=== PATIENT | female | born 1935 | race Caucasian/White ===

== ENCOUNTER 2018-05-23 17:44 | Outpatient (CLI) | payer MEDICARE | END 2018-05-23 17:45 | disposition short-term general hospital (02) | LOC: EMS 17:44 | PROVIDERS: ATTEND Surgery | DX: S01.21XA Laceration without foreign body of nose, initial encounter (principal); M79.605 Pain in left leg; W01.10XA Fall on same level from slipping, tripping and stumbling with subsequent striking against unspecified object, initial encounter; Y93.01 Activity, walking, marching and hiking; Y92.198 Other place in other specified residential institution as the place of occurrence of the external cause | CPT/HCPCS: A0425; A0429 ==

== ENCOUNTER 2019-03-29 09:59 | Outpatient (CLI) | payer MEDICARE, OTHER | END 2019-03-29 10:00 | disposition short-term general hospital (02) | LOC: EMS 09:59 | PROVIDERS: ATTEND Surgery | DX: M25.551 Pain in right hip (principal); R07.81 Pleurodynia | CPT/HCPCS: A0425; A0427; A0888 ==

== ENCOUNTER 2019-05-05 10:50 | Outpatient (CLI) | payer MEDICARE, OTHER ==
--- NOTE | 2019-05-05 15:18 | CONSULTATION NOTE ---
Palliative Care Consultation - Referral Referring Provider: Dr. Jasmyn Stallworth Time of Visit: [id number] Referral setting: Assisted living ([facility]) Referral Reason: Dementia/Advanced Care Planning - Information Sources Records reviewed: RN notes reviewed, Previous records reviewed History/Review of Systems obtained from: Patient, Family (son/DPOA/Guardian, Guillermo and brother, Dick present) Exam limitations: Clinical condition (Advanced Dementia) - History of Present Illness Brief History of Present Illness: Is an 83-year-old woman who resides in [facility] at [facility] who was seen in evaluation for initial palliative care consultation today due to advanced dementia, advanced care planning, and due to a history of frequent UTIs. Her son/D POA/guardian, Guillermo and her brother, Dick are present with the patient. The patient has had a slow cognitive decline over the last few years. Her son reports that she was diagnosed with dementia approximately 7 years ago and she relocated to an assisted living facility in [place]. She then subsequently relocated to an assisted living in [place], then [facility] in [place] and eventually to [facility] before transferring to the memory care unit and has been in memory care for approximately 4 years. The patient has a history of diabetes and is presently on metformin. She does not allow anyone to draw a vena puncture due to her advancement of her dementia. Her last fingerstick obtained in the office with her PCP was 121 on July 01, 2017. There is no evidence of episodes of hypoglycemia. Son is regarding the son is concerned regarding her frequency of urinary tract infections. Typically when she develops a urinary tract infection her mood alters and that she is quite emotional and agitated. The urinary tract infections have increased due to the patient's level of incontinence from both bowel and bladder. She also has a history of falls. She continues to be able to ambulate but will not use her walker. 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 Her son and brother both deny a history of fractures. Now the patient is intermittently in a wheelchair. She denies any reports of pain or discomfort. Medical/Surgical History - Past Medical History Cardiovascular: reports: Hypertension, High cholesterol, Coronary artery disease (h/o angioplasty 1990) Respiratory: reports: None Neuro: Dementia Neuro: reports: Dementia Endocrine/Autoimmune: reports: Type 2 diabetes GI: reports: None BAGMAN/WOMAN: reports: None : reports: Incontinence HEENT: reports: None Psych: reports: Depression Musculoskeletal: reports: Osteoarthritis Derm: reports: None MRSA Hx?: No - Past Surgical History General: reports: Cholecystectomy (1989), Appendectomy (1958), Other (Hernia surgery) Ortho: reports: Other (Back surgery 1998) /BAGMAN/WOMAN: reports: Other (Breast Biopsy 1995; Total hysterectomy with BSO) Cardiovascular: reports: Angioplasty (1990) - Substance History Use: Uses substance without health or social issues: NONE (Never a smoker) Social History - Living Situation Living arrangement: Assisted living Support System: The patient presently resides at [facility] memory unit at [facility]. She has resided at [facility] for approximately the last 4 years. She has been in assisted living for approximately the last 7 years after her diagnosis of dementia. The patient had been residing in [place]. She was for approximately 56 years to her . Her subsequently on hospice services due to heart disease. She has 2 sons. Her son, Guillermo Hamm is her guardian and D ROBIN ([phone]). Guillermo visits routinely during the week. He is presently working on building a home in [place]. The patient's brother, Dick visits almost daily. The patient had 1 other sibling, a sister who is . The patient's son, Guillermo reports that the patient was a "great mom." She was always a caregiver. Presently in the memory care unit she has assisted others as a something she is done throughout her life. Family History - Family History Family History: Mother: , Father: , Sister: Family History Comment/Other: Older sister from leukemia. Father at age 77 due to heart disease and multiple MIs. Paternal uncle at 94 due to heart disease. Medications/Allergies - Medications Home Medications: Ambulatory Orders Medication Instructions Recorded Confirmed Acetaminophen 500 mg PO Q4H PRN MDD NTE 2gram 05/05/19 05/05/19 daily Aspirin [Aspirin EC] 81 mg PO DAILY 05/05/19 05/05/19 Bisacodyl Supp [Dulcolax Supp] 1 ea [place] DAILY PRN MDD if NO BM 05/05/19 05/05/19 after MOM in 24hr Bismuth Subsalicylate [[place] 15 ml PO Q1H PRN MDD NTE 3 05/05/19 05/05/19 Bismuth] doses/24hour Cranberry Fruit Extract/Vit C [Cvs 1 cap PO DAILY 05/05/19 05/05/19 Cranberry-Vitamin C Sfgl] LORazepam [Ativan] 0.5 mg PO Q6H PRN 05/05/19 05/05/19 LORazepam [Ativan] 0.5 mg PO TID 05/05/19 05/05/19 Lisinopril [Prinivil] 10 mg PO BID 05/05/19 05/05/19 Loperamide HCl [Loperamide] 05/05/19 Loratadine [Allergy] 10 mg PO DAILY 05/05/19 05/05/19 Magnesium Hydroxide [Milk of 30 ml PO DAILY PRN 05/05/19 05/05/19 Magnesia] Meloxicam 7.5 mg PO DAILY 05/05/19 05/05/19 Metformin HCl 500 mg PO BID 05/05/19 05/05/19 Multivitamin [Multiple Vitamins] 1 tab PO DAILY 05/05/19 05/05/19 Nystatin 1 applic TP Q8H PRN MDD as needed 05/05/19 05/05/19 reddness QUEtiapine [SEROquel] 25 mg PO QPM 05/05/19 05/05/19 Sertraline HCl [Zoloft] 150 mg PO DAILY 05/05/19 05/05/19 - Allergies Allergies/Adverse Reactions: Allergies Allergy/AdvReac Type Severity Reaction Status Date / Time codeine Allergy Unknown Verified 05/05/19 15:48 Penicillins Allergy Unknown Verified 05/05/19 15:48 zolpidem [From Ambien] Allergy Unknown Verified 05/05/19 15:48 Review of Systems - Constitutional Constitutional: reports: Weight stable (weight 151.4lb on 03/30/2019; weight 155.6lb ob 03/30/2018). denies: Fatigue, Fever, Chills - Eyes Eyes: denies: Blurred vision - Ears, Nose & Throat Ears, Nose & Throat: denies: Nasal discharge - Cardiovascular Cardiovascular: denies: Palpitations, Chest pain, Edema - Respiratory Respiratory: reports: Cough. denies: Wheezing - Gastrointestinal Gastrointestinal: reports: Good appetite. denies: Abdominal pain, Abdominal distention, Constipation, Diarrhea, Vomiting - Genitourinary Genitourinary: reports: Incontinence. denies: Dysuria - Musculoskeletal Musculoskeletal: reports: Muscle weakness, Assistive devices (walker or wheelchair). denies: Joint pain, Joint swelling - Integumentary Integumentary: denies: Rash - Neurological Neurological: reports: Memory problems - Psychiatric Psychiatric: reports: Depression - Endocrine Endocrine: reports: Diabetes type 2 - Hematologic/Lymphatic Hematologic/Lymphatic: reports: Recurrent infections (frequent UTIs) - All Other Systems All Other Systems: reports: Other (ROS obtained from son/DPHUGO, Guillermo, brother Dick and facility staff as patient is a poor historian due to dementia.) Physical Exam - Vital Signs Temperature: 36.5 C Pulse Rate: 62 O2 Saturation: 98 (on RA at rest) Blood Pressure: 105/54 (right wrist cuff) - Physical Exam General Appearance: positive: No acute distress, Alert, Other (well groomed, OOB in wheelchair) Eyes Bilateral: positive: Normal inspection ENT: positive: No signs of dehydration Neck: positive: No JVD, Trachea midline Cardiovascular: positive: Regular rate & rhythm, No murmur Respiratory: positive: No respiratory distress, Breath sounds nml, Other (no noted cough on examination). negative: Rhonchi Abdomen: positive: Non-tender, Soft, Nml bowel sounds. negative: Guarding, Distended Skin: negative: Dryness Extremities: positive: Non-tender, No pedal edema, Other (Moves all extremities) Neurologic/Psychiatric: positive: Disoriented to person, Disoriented to place, Disoriented to time, Other (word salad; pleasantly confused; no s/s of agitation or anxiety) Comments/Other: weight 151.4lb Palliative Care - POLST Patient has POLST: Yes POLST Status: DNR, Comfort Measures Pain: No pain Anorexia: None Dyspnea: None Sleep: Sleeps well Constipation: No Performance Status: Patient remains ambulatory with frequent falls due to her dementia has she is unable to accurately use a walker. Periodically she is in a wheelchair. She requires total assistance with hygiene and care. She is incontinent of bowel and bladder. With consuming meals she worked requires either cueing or a 1 person assistance depending on the day. FAST 7B - Palliative Care Discussion: The patient has had a slow and steady cognitive decline over the last several years due to her dementia. Both her son/D POA/guardian, Guillermo and her brother Dick recognize the progression of the dementia diagnosis has a chronic illness. Her son is very concerned regarding her frequency of urinary tract infections and the emotional and physical distress that this causes her. He wishes to promptly treat the urinary tract infections as they occur for comfort. Staff continue to encourage oral hydration to reduce the risk of urinary tract infection. Her son also requested implementation of cranberry supplementation that began in the fall 2018 to reduce the frequency of her urinary tract infe ctions. It is difficult for the patient to leave the facility due to her advancement of dementia and her son is looking for assistance in the patient's care with a goal of comfort. If the patient has to be sent out for ER level of care for evaluation the son wishes the patient to be transported to [facility] as his preference. The patient's was on hospice services and per both her son and her brother this was a positive experience. They wish for the patient to transition to hospice services when appropriate. POLST reviewed today and updated. Patient to remain a DNA R with comfort measures with antibiotic therapy for symptom management with no artificial nutrition by tube. Impression and Recommendations - Palliative Care Impression: This is a william 83-year-old woman with advanced dementia F AST 7B with a history of frequent falls and urinary tract infections who has had a slow, steady cognitive decline. She is presently on cranberry supplementation for UTI prophylaxis. Palliative care to provide support for symptom management, anticipatory guidance, and transition to hospice services when medically appropriate. Recommendations/Counseling Done: 1. Dementia with behavioral disturbances. Chronic. Progressive. Supportive Care. Fall a precautions. No behavioral concerns reported by staff. Continue quetiapine 25mg nightly as ordered and consider dose reduction in the future if no evidence of agitation. Continue zoloft 150mg daily as ordered. Given the patient's advanced age, dementia and chronic co-morbities, a gradual decline is expected. 2. Frequent UTIs. Continue cranberry supplementation with Vitamin C as ordered. Discussed use of D'Mannose with son/DPOA/guardian, Guillermo for additional prophylaxis and explained mechanism of action. At this time, son/DPOA wishes to investigate the supplement D'Mannose further prior to implementation. Continue to encourage oral hydration. 3. Frequent falls. Falls unavoidable due to dementia. Fall precautions. Encourage to ambulate with walker. 4. HLD with CAD. Continue ASA 81mg daily for cardiac prophylaxis. Discussed with son/DPOA, given the patient's advanced age and co-morbidities would recommend discontinuation of statin therapy given the patient's expected length of life expectancy, time to see continued benefit of statin therapy and medication side effects. Discontinue atorvastatin 20mg daily. 5. Diabetes Mellitus Type II. No recent HgA1C. Presently on metformin 500mg BID and given patient is in a controlled setting with her diet and overall weight loss from 2017 to 2019 (171.8lb to 151.4lb) unlikely to need continued metformin dosage discussed with son and in agreement with tapering off the medication. Unable to obtain a HgA1C given patient's distress with venipuncture. Obtain fasting blood glucose level on 05/06, 05/10, 05/12 and notify MASTER FIRE CONTROL TECHNICIAN of result. If below 200mg/dL for blood glucose level will d/c AM dose of metformin and continue to monitor with goal of complete discontinuation. Continue to monitor. 6. HTN. No cardiac awareness. Continue lisinopril 10mg BID. Continue ASA 81mg daily for cardiac prophylaxis. Continue to monitor BP trends and adjust antihypertensive medications as needed. 7. Advanced Care Planning. Goals of care reviewed with patient's son/Guillermo WALLACE and her brother Dick. The goals of the patient's family are to focus on comfort and prompt treatment of urinary tract infections with a reduction in frequency if at all possible. POLST reviewed and updated today and patient remains DNR with a comfort focused approach to care. Her family wishes to transition to hospice services when medically appropriate. Time Spent: Total time spent 60 minutes with greater than 50% of this spent in counseling and coordination of care with son/DPHUGO Li, brother Dick, patient and facility staff; review of medications and examination of the patient; review of palliative care philosophy; review symptom management and anticipatory guidance. Disclaimer: The chart note was formulated using voice recognition technology and unfortunately sound alike errors may occur.
== END 2019-05-05 10:51 | disposition home or self-care (01) ==
LOC: PC 10:50
PROVIDERS: ATTEND Nurse Practitioner Family
DX: Z51.5 Encounter for palliative care (principal); F03.91 Unspecified dementia, unspecified severity, with behavioral disturbance; E11.9 Type 2 diabetes mellitus without complications; R32 Unspecified urinary incontinence; R15.9 Full incontinence of feces; M62.81 Muscle weakness (generalized); I10 Essential (primary) hypertension; I25.10 Atherosclerotic heart disease of native coronary artery without angina pectoris; Z79.899 Other long term (current) drug therapy; Z79.82 Long term (current) use of aspirin; Z79.84 Long term (current) use of oral hypoglycemic drugs; Z87.440 Personal history of urinary (tract) infections; Z66 Do not resuscitate; Z91.81 History of falling

== ENCOUNTER 2019-06-04 17:46 | Outpatient (CLI) | payer MEDICARE, OTHER ==
--- NOTE | 2019-06-04 17:52 | CONSULTATION NOTE ---
Palliative Care Follow Up - Referral Referring Provider: Dr. Jasmyn Stallworth Time of Visit: [id number] Referral setting: Assisted living ([facility]) - Information Sources Records reviewed: Previous records reviewed History/Review of Systems obtained from: Caregiver, Nursing Exam limitations: Clinical condition (Advanced dementia) - History of Present Illness Update Brief HPI Update: This is an 84-year-old woman who resides at [facility] who is seen in follow-up today for her history of advanced dementia, diabetes mellitus type II, and a history of frequent UTIs. The patient has a history of diabetes and is presently on metformin. She will not allow anyone to perform a vena puncture due to her advanced dementia. Staff deny any episodes of hypoglycemia. Fasting blood glucoses were obtained in April 2019 as follows 98, 122, 117,. Fingerstick obtained in her PCP office in June 2017 was 121. On last evaluation had discussed with son/Major KELLY regarding tapering off metformin based on her blood glucose levels. The patient has had a reduction in her fall frequency. She continues to ambulate and will not use her walker. No history of fractures. The patient herself denies any joint pain or discomfort. Since last evaluation the patient did spill hot cocoa resulting in some erythema to her upper thigh that has subsequently resolved. She does enjoy her hot cocoa and needs to have the ice in it. The patient has a history of frequent urinary tract infections. Typically when these occur she has alterations in her mood which she can become emotional and agitated. She is presently on cranberry and vitamin C supplementation for UTI prevention. Patient denies dysuria. Patient has a past medical history of hypertension, hyperlipidemia, coronary artery disease with history of angioplasty, dementia, type 2 diabetes, urinary incontinence, osteoarthritis, depression. Social History - Living Situation Living arrangement: Assisted living Support System: Patient presently resides at [facility] at [facility]. She has resided at [facility] for approximately the last 4 years. She has been in assisted living for approximately the last 7 years after her diagnosis of dementia. The patient had previously been residing in [place].She was to her for 56 years. Her on hospice services due to heart disease. She has 2 sons. Her son, Guillermo is her guardian and D ROBIN ([phone]. Her son/D POA Guillermo visits routinely during the week and the patient's brother, Dick visits almost daily. However, due to the present coronavirus and pandemic and the facility not allowing visitors both Dick and Guillermo have not been able to visit for the last month. Medications/Allergies - Medications Home Medications: Ambulatory Orders Medication Instructions Recorded Confirmed Acetaminophen 500 mg PO Q4H PRN MDD NTE 2gram 05/05/19 06/04/19 daily Aspirin [Aspirin EC] 81 mg PO DAILY 05/05/19 06/04/19 Bisacodyl Supp [Dulcolax Supp] 1 ea SC DAILY PRN MDD if NO BM 05/05/19 06/04/19 after MOM in 24hr Bismuth Subsalicylate [[place] 15 ml PO Q1H PRN MDD NTE 3 05/05/19 06/04/19 Bismuth] doses/24hour Cranberry Fruit Extract/Vit C [Cvs 1 cap PO DAILY 05/05/19 06/04/19 Cranberry-Vitamin C Sfgl] LORazepam [Ativan] 0.5 mg PO Q6H PRN 05/05/19 06/04/19 LORazepam [Ativan] 0.5 mg PO TID 05/05/19 06/04/19 Lisinopril [Prinivil] 10 mg PO BID 05/05/19 06/04/19 Loperamide HCl [Loperamide] 05/05/19 Loratadine [Allergy] 10 mg PO DAILY 05/05/19 05/05/19 Magnesium Hydroxide [Milk of 30 ml PO DAILY PRN 05/05/19 05/05/19 Magnesia] Meloxicam 7.5 mg PO DAILY 05/05/19 05/05/19 Metformin HCl 500 mg PO DAILY 05/05/19 06/04/19 Multivitamin [Multiple Vitamins] 1 tab PO DAILY 05/05/19 06/04/19 Nystatin 1 applic TP Q8H PRN MDD as needed 05/05/19 06/04/19 reddness QUEtiapine [SEROquel] 25 mg PO QPM 05/05/19 06/04/19 Sertraline HCl [Zoloft] 150 mg PO DAILY 05/05/19 06/04/19 D'Mannose 1 g PO BID 06/04/19 06/04/19 - Allergies Allergies/Adverse Reactions: Allergies Allergy/AdvReac Type Severity Reaction Status Date / Time codeine Allergy Unknown Verified 05/05/19 15:48 Penicillins Allergy Unknown Verified 05/05/19 15:48 zolpidem [From Ambien] Allergy Unknown Verified 05/05/19 15:48 Review of Systems - Constitutional Constitutional: reports: Weight loss (weight 144.6lb; 148.4lb April 2019; 151.4lb Mar 2019; 155.6lb Mar 2018). denies: Fever, Chills - Eyes Eyes: denies: Blurred vision, Corrective lenses - Ears, Nose & Throat Ears, Nose & Throat: denies: Dry mouth - Cardiovascular Cardiovascular: denies: Palpitations, Chest pain - Respiratory Respiratory: denies: Cough - Gastrointestinal Gastrointestinal: reports: Good appetite. denies: Constipation, Diarrhea, Vomiting - Genitourinary Genitourinary: reports: Incontinence. denies: Dysuria - Musculoskeletal Musculoskeletal: reports: Muscle weakness, Assistive devices. denies: Joint pain, Joint swelling - Integumentary Integumentary: denies: Rash - Neurological Neurological: reports: General weakness, Memory problems. denies: Headache - Psychiatric Psychiatric: reports: Depression - Endocrine Endocrine: reports: Diabetes type 2 - Hematologic/Lymphatic Hematologic/Lymphatic: reports: Recurrent infections (frequent UTIs) - All Other Systems All Other Systems: reports: Reviewed and negative (ROS limited as patient is a poor historian due to dementia. ROS obtained from caregivers and nursing.) Physical Exam - Vital Signs Temperature: 36.6 C Pulse Rate: 57 O2 Saturation: 95 (on RA at rest) Blood Pressure: 114/80 (left wrist cuff) - Physical Exam General Appearance: positive: No acute distress, Alert, Other (OOB in common area humming to music that is being played) Eyes Bilateral: positive: Normal inspection ENT: positive: No signs of dehydration Neck: positive: Trachea midline Cardiovascular: positive: Regular rate & rhythm, No murmur Respiratory: positive: No respiratory distress, Breath sounds nml. negative: Rales Abdomen: positive: Non-tender, Soft, Nml bowel sounds. negative: Distended Skin: positive: No symptoms Extremities: positive: Full ROM, No pedal edema Neurologic/Psychiatric: positive: Disoriented to person, Disoriented to place, Disoriented to time, Unintelligible speech (world salad), Other (pleasantly confused) Palliative Care - POLST Patient has POLST: Yes POLST Status: DNR, Comfort Measures Pain: No pain (History of osteoarthritis with controlled pain on meloxicam 7.5mg daily) Anorexia: None Dyspnea: None Depression: None (controlled with zoloft) Sleep: Sleeps well Constipation: Managed, Intermittent constipation Performance Status: Patient remains ambulatory with a recent reduction in her falls. She is unable to accurately use a walker due to her dementia. Periodically she is in a wheelchair. She requires total assistance with hygiene and care. She is incontinent of bowel and bladder. During meals she requires cueing or a 1 person assistance depending on the day. FAS T7 B - Palliative Care Discussion: The patient has had a slow and steady cognitive decline over the last several years due to her dementia. She is resistant to allowing any venipuncture to evaluate her hemoglobin A1c. Therefore, fasting blood glucose levels were obtained to eliminate medications that are contributing to polypharmacy. Her blood glucose levels were less than 130 fasting and therefore will reduce her metformin dosage. The patient has a history of frequent urinary tract infections none recently, and the staff continue to encourage oral hydration to reduce the risk of urinary tract infection as well as she continues on cranberry and vitamin C supplementation for UTI prophylaxis. The son has found it difficult to not be able to see the patient in the last month secondary to the coronavirus pandemic and the facility being restricted to visitors at this time. This [facility] offered for the son/D POA to speak to the patient on the phone but he declined worrying that it may cause confusion and disruption for the patient. Overall the patient's weight has been stable since last evaluation. Of note, if the patient is sent out to the ER the son wishes the patient to be transferred to [facility] as his preference. The patient son/D POA wishes to focus on comfort measures with a transition to hospice when appropriate. Results - Lab Results Lab results reviewed: Yes Lab and Imaging Results: Fasting blood glucose levels: 05/07/19: 98 05/11/19: 122 05/13/19: 117 Impression and Recommendations - Palliative Care Impression: This is a william 84-year-old woman with advanced dementia FAS T7 B with a history of frequent falls and urinary tract infections who continues to have a slow, steady cognitive decline. Fasting blood glucose levels that were obtained will go toward 30. Palliative care to continue to provide support for symptom management, anticipatory guidance and transition to hospice when medically appropriate. Recommendations/Counseling Done: 1. Diabetes mellitus type 2. No recent hemoglobin A1c. Have been unable to obtain a hemoglobin A1c given the patient's distress with venipuncture. She is in a controlled setting with her diet and she has had a trending weight loss from 2018 to the present (171.8pounds to 144.6 pounds). Fasting blood glucose levels obtained and were less than 130. Discontinue metformin 500 mg in the evening. Continue metformin 500 mg in the morning. Request that fasting blood glucose levels be obtained on Saturday and Saturday for 2 weeks and to be notified of the result. If patient's blood glucose levels remain less than 130 then would consider discontinuation of metformin 5 mg in the a.m. If this is not the case, then would consider continuation of metformin 500 mg in the morning and then will reassess. CTM. 2. Frequent UTIs. Continue cranberry supplementation with vitamin C as ordered for UTI prophylaxis. Reviewed with son/D POA again regarding d-mannose supplementation for additional prophylaxis and explained dose and side effects with understanding verbalized. DPOA/son in agreement to implement D'mannose 1gram BID for UTI prophylaxis. Continue to encourage oral hydration. 3.Dementia with behavioral disturbances. Chronic. Progressive. Supportive care. Fall precautions. No behavioral concerns reported by staff. Continue quetiapine 25 mg nightly as ordered and consider dose reduction in the future if no evidence of agitation. Continue Zoloft 150 mg daily as ordered. Given the patient's advanced age, dementia, and chronic comorbidities, a gradual decline as expected. Time Spent: CPT 72016 Reviewed POC with mariajose/Guillermo WARD via phone with questions answered and addressed. Reviewed with son/DPHUGO and nursing staff regarding medication changes with side effects, review of symptom management and anticipatory guidance. Disclaimer: The chart note was formulated using voice recognition technology and unfortunately sound alike errors may occur.
== END 2019-06-04 17:47 | disposition home or self-care (01) ==
LOC: PC 17:46
PROVIDERS: ATTEND Nurse Practitioner Family
DX: Z51.5 Encounter for palliative care (principal); F03.91 Unspecified dementia, unspecified severity, with behavioral disturbance; E11.9 Type 2 diabetes mellitus without complications; M62.81 Muscle weakness (generalized); Z79.84 Long term (current) use of oral hypoglycemic drugs; Z79.82 Long term (current) use of aspirin; Z79.899 Other long term (current) drug therapy; Z87.440 Personal history of urinary (tract) infections; Z91.81 History of falling; Z66 Do not resuscitate

== ENCOUNTER 2019-07-30 08:50 | Outpatient (CLI) | payer MEDICARE, OTHER, MEDICAID ==
--- NOTE | 2019-07-30 13:01 | CONSULTATION NOTE ---
Palliative Care Follow Up - Referral Referring Provider: Dr. Jasmyn Stallworth Time of Visit: [id number] Referral setting: Assisted living Referral Reason: Dementia/Debility/Type II DM - Information Sources Records reviewed: Previous records reviewed History/Review of Systems obtained from: Patient, Family (son/SYLVIA Li), Caregiver, Nursing Exam limitations: Clinical condition (Advanced Dementia) - History of Present Illness Update Brief HPI Update: This is an 84-year-old woman who resides at [facility] who is seen in follow-up today for her history of advanced dementia, diabetes mellitus type 2, history of frequent UTIs, and overall general decline. The patient has had a slow cognitive decline over the last few years. She was diagnosed with dementia approximately 7 years ago and she relocated to assisted living facility in [place]. She has been at [facility] for approximately 4 years.Since the onset of the coronavirus pandemic and the facility on lockdown staff and the patient's family notes an overall general decline. She is not as interactive as she used to be. She is also not ambulating independently as frequently. She is relying more on the wheelchair.Staff reports that in the afternoon she becomes tired of sitting and will then ambulate.Staff reports that in the afternoon she becomes tired of sitting and will then ambulate.Last fall noted was in May 2019 without injury. The patient has a history of diabetes mellitus type 2. When she was last evaluated by this TILE SHADER her metformin dosage was reduced to 500 mg once daily.She will not allow anyone to draw a vena puncture due to her advanced dementia.After the reduction of her metformin to once daily her blood glucose was obtained fasting and were as [id number], 94, 112, 109.This was requested to be faxed to this TILE SHADER in late May 2019 however, this unfortunately was not related and was reviewed today.There have been no episodes of hypoglycemia. The patient is presently consuming are approximately 50% of her meals, give or take. She is requiring increased assistance with cueing.She had a noted weight loss trends and was started on health shakes twice daily. Of the house shakes she typically will consume 50% of the shakes.Her weight has subsequently increased and stabilized and she presently weighs 153.6 pounds. On her last evaluation she was initiated on d-mannose for UTI prophylaxis. She also remains on cranberry and vitamin C supplementation. She has a history of frequent urinary tract infections. When these urinary tract infections occur it typically alters her mood and she becomes emotional and agitated.There have been no recent urinary tract infections. The patient denies dysuria. She is incontinent of urine. The patient is seen today sitting in a wheelchair in the common area at the table. She is just completed breakfast. She is alert, cheerful and calm. No evidence of distress. Patient has a past medical history of hypertension, hyperlipidemia, coronary artery disease with a history of angioplasty, dementia, type 2 diabetes mellitus, urinary incontinence, osteoarthritis, depression. Social History - Living Situation Living arrangement: Assisted living Support System: Patient resides at [facility] and has resided here for the last 4 years. She has been in assisted living for approximately 7 years after her diagnosis of dementia. to her for 56 years and he on hospice services due to heart disease.Has 2 sons. Her son, Guillermo is her guardian and D ROBIN ([phone] (.Prior to the coronavirus pandemic and the facility on and not allowing visitors, both the patient's son and brother Dick would visit daily.The patient's son, Guillermo reports that he and his uncle Dick have been able to see the patient visibly through the window. He notes that she seems more distant and is always in the wheelchair when previously she was not. Medications/Allergies - Medications Home Medications: Ambulatory Orders Medication Instructions Recorded Confirmed Acetaminophen 500 mg PO Q4H PRN MDD NTE 2gram 05/05/19 06/04/19 daily Aspirin [Aspirin EC] 81 mg PO DAILY 05/05/19 06/04/19 Bisacodyl Supp [Dulcolax Supp] 1 ea NM DAILY PRN MDD if NO BM 05/05/19 06/04/19 after MOM in 24hr Bismuth Subsalicylate [[place] 15 ml PO Q1H PRN MDD NTE 3 05/05/19 06/04/19 Bismuth] doses/24hour Cranberry Fruit Extract/Vit C [Cvs 1 cap PO DAILY 05/05/19 06/04/19 Cranberry-Vitamin C Sfgl] LORazepam [Ativan] 0.5 mg PO Q6H PRN 05/05/19 06/04/19 LORazepam [Ativan] 0.5 mg PO TID 05/05/19 06/04/19 Lisinopril [Prinivil] 10 mg PO BID 05/05/19 06/04/19 Loperamide HCl [Loperamide] 05/05/19 Loratadine [Allergy] 10 mg PO DAILY 05/05/19 05/05/19 Magnesium Hydroxide [Milk of 30 ml PO DAILY PRN 05/05/19 05/05/19 Magnesia] Meloxicam 7.5 mg PO DAILY 05/05/19 05/05/19 Multivitamin [Multiple Vitamins] 1 tab PO DAILY 05/05/19 06/04/19 Nystatin 1 applic TP Q8H PRN MDD as needed 05/05/19 06/04/19 reddness QUEtiapine [SEROquel] 25 mg PO QPM 05/05/19 06/04/19 Sertraline HCl [Zoloft] 150 mg PO DAILY 05/05/19 06/04/19 D'Mannose 1 g PO BID 06/04/19 06/04/19 - Allergies Allergies/Adverse Reactions: Allergies Allergy/AdvReac Type Severity Reaction Status Date / Time codeine Allergy Unknown Verified 05/05/19 15:48 Penicillins Allergy Unknown Verified 05/05/19 15:48 zolpidem [From Ambien] Allergy Unknown Verified 05/05/19 15:48 Review of Systems - Constitutional Constitutional: reports: Weight gain (weight 153.6lb; May 2019 144.6lb; Mar 2019 151.4lb). denies: Fever - Eyes Eyes: denies: Corrective lenses - Ears, Nose & Throat Ears, Nose & Throat: denies: Hearing loss, Dentures - Cardiovascular Cardiovascular: denies: Chest pain - Respiratory Respiratory: denies: Cough, Wheezing - Gastrointestinal Gastrointestinal: reports: Other (Fair appetite with supplemental house shakes). denies: Abdominal pain, Constipation, Diarrhea, Vomiting - Genitourinary Genitourinary: reports: Incontinence. denies: Dysuria, Frequency - Musculoskeletal Musculoskeletal: reports: Muscle weakness, Assistive devices, Transfer issues. denies: Joint pain - Integumentary Integumentary: denies: Rash - Neurological Neurological: reports: General weakness, Memory problems - Psychiatric Psychiatric: reports: Depression - Endocrine Endocrine: reports: Diabetes type 2 - Hematologic/Lymphatic Hematologic/Lymphatic: reports: Recurrent infections (frequent UTIs) - All Other Systems All Other Systems: reports: Reviewed and negative (ROS limited as patient is a poor historian due to dementia. ROS obtained from caregivers and nursing.) Physical Exam - Vital Signs Temperature: 36.6 C Pulse Rate: 70 O2 Saturation: 95 (on RA at rest) Blood Pressure: 135/64 (left wrist cuff) - Physical Exam General Appearance: positive: No acute distress, Alert, Other (OOB in wheelchair at dinning table, well groomed) Eyes Bilateral: positive: Normal inspection ENT: positive: Other (+endentulous) Neck: positive: Trachea midline Cardiovascular: positive: Regular rate & rhythm, No murmur Respiratory: positive: No respiratory distress, Breath sounds nml Abdomen: positive: Non-tender, Soft, Nml bowel sounds. negative: Guarding Skin: positive: No symptoms Extremities: positive: No pedal edema, Other (moves all extremities) Neurologic/Psychiatric: positive: Disoriented to person, Disoriented to place, Disoriented to time, Unintelligible speech (world salad), Other (cheerful and talkative today) Palliative Care - POLST Patient has POLST: Yes POLST Status: DNR, Comfort Measures Pain: No pain (History of OA controlled with meloxicam 7.5mg daily) Drowsiness/Sedation: Moderate (4-6) (napping more during the day) Anorexia: Mild (1-3) (see HPI for additional details) Sleep: Sleeps well Constipation: No, Managed Performance Status: Patient has had a functional decline and is less ambulatory. She is typically in a wheelchair and intermittently will ambulate. Last fall in May 2019. She requires total assistance with hygiene and care. She is incontinent of bowel and bladder. She requires cueing during mealtime and presently sits at the assisted table in the dining room of the facility. F AST 7B - Palliative Care Discussion: The patient has had a slow and steady cognitive decline over the last several years to her to her dementia. She is now opting to sit in her wheelchair for long periods of time and not ambulating. Periodically she will ambulate in the afternoons. She has had a reduction in overall falls. Her son and/D SHANEGuillermo Celestin as well as the facility staff have noticed an overall decline with the patient's overall demeanor. She is not as engaged as she was prior to the leal virus pandemic. She previously saw her brother, Dick as well as her son/D ROBIN Li on an almost daily basis. They have made visits and has seen the patient through the window, but this is not the same thing as being able to have physical touch and interaction.The patient's son/D POA acknowledges that this visitor restriction is for everyone safety but is looking forward to a time where he will be able to interact with the patient. The goal remains to focus on comfort with a transition to hospice when appropriate. As the patient has had blood glucose levels less than 130 when these were obtained discussed with the son discontinuation of metformin for reduction of pill burden and is in agreement. Impression and Recommendations - Palliative Care Impression: This is a william 84-year-old woman with advanced dementia, FAS T7 B, with a history of frequent urinary tract infections, diabetes mellitus type 2 who has had a steady cognitive decline with a more recent functional decline. She had weight loss that has subsequently been regained. She continues on's house shakes. Fasting blood glucose levels were less than 130. Palliative care to continue to provide support for symptom management, anticipatory guidance, and a transition to hospice when medically appropriate. Recommendations/Counseling Done: 1. Diabetes mellitus type 2. No recent hemoglobin A1c. As the patient would have distress due to a vena puncture hemoglobin A1c has not been attempted to be obtained. She is presently in a controlled setting with her diet with a weight loss trend from 2017 to the present (171.8pounds to 153.6 pounds (. Fasting blood glucose levels were obtained in May 2019 and were all less than 130.Discussed with son given lack of supplies to obtain repeat fasting blood glucose levels versus discontinuation of the patient's metformin dose given her overall oral intake reviewed.Son/D POA in agreement for discontinuation of metforminGiven discontinuation of metformin will and initiate blood glucose check for signs and symptoms of hypoglycemia or hyperglycemia and to notify MD/TILE SHADER if blood glucose levels are less than 70 or greater than 300.Continue to monitor. 2. Osteoarthritis. No reports of pain or discomfort on examination. No history of GI bleed. Continue meloxicam 7.5 mg daily as ordered. Continue to weigh benefits versus burdens were regarding NSAID therapy in the future. Patient asymptomatic at the present time and will continue with present therapy. 3. Hypertension. No cardiac or illness. Continue lisinopril 10 mg twice daily. Continue aspirin 81 mg daily for cardiac prophylaxis. Continue to monitor BP trends and adjust antihypertensive medications as needed. 4. Weight loss. Patient had noted weight loss That has subsequently increased and stabilized. Present weight 153.6 pounds. This is multifactorial due to patient's increased sedentary behaviors as well as the progression of her dementia. Continue Shakes twice daily. Continue to monitor weekly weights. 5. History of frequent urinary tract infections. No recent UTI. Continue cranberry supplementation with vitamin C and d-mannose for UTI prophylaxis. Continue to encourage oral hydration. 6.Dementia with behavioral disturbances. Chronic. Progressive. Supportive care. Fall precautions. No behavioral concerns reported by staff. Has had noted functional decline as she is less ambulatory. She is also sleeping more throughout the day. Continue quetiapine 25 mg nightly as ordered and if continues to remain stable consider dose reduction in the future if no evidence of agitation. Continue Zoloft 150 mg daily as ordered. Given the patient's advanced age, dementia and chronic comorbidities a gradual decline as expected. Time Spent: CPT 73881 POC reviewed with nursing staff. Discussed POC with son/SYLVIA Li over the phone and reviewed progression of dementia, medication reduction and symptom management with agreement. Questions answered and addressed. Disclaimer: The chart note was formulated using voice recognition technology and unfortunately sound alike errors may occur.
== END 2019-07-30 08:51 | disposition home or self-care (01) ==
LOC: PC 08:50
PROVIDERS: ATTEND Nurse Practitioner Family
DX: Z51.5 Encounter for palliative care (principal); F03.91 Unspecified dementia, unspecified severity, with behavioral disturbance; E11.9 Type 2 diabetes mellitus without complications; R53.83 Other fatigue; I10 Essential (primary) hypertension; M19.90 Unspecified osteoarthritis, unspecified site; R63.4 Abnormal weight loss; R32 Unspecified urinary incontinence; Z79.899 Other long term (current) drug therapy; Z79.84 Long term (current) use of oral hypoglycemic drugs; Z87.440 Personal history of urinary (tract) infections; Z91.81 History of falling; Z66 Do not resuscitate

== ENCOUNTER 2019-08-10 09:10 | Outpatient (CLI) | payer MEDICARE, OTHER, MEDICAID ==
--- NOTE | 2019-08-10 10:22 | CONSULTATION NOTE ---
Palliative Care Follow Up - Referral Referring Provider: Dr. Jasmyn Stallworth Time of Visit: Referral setting: Assisted living Referral Reason: Elevated blood glucose/Dementia - Information Sources Records reviewed: Previous records reviewed History/Review of Systems obtained from: Patient, Nursing Exam limitations: Clinical condition (Advanced dementia) - History of Present Illness Update Brief HPI Update: This is an 84-year-old female who resides at [facility] who was seen in follow-up today due to recent elevation of her blood glucose level due to diabetes mellitus type 2 and a history of advanced dementia. 11/10/2019 the patient had a blood glucose level noted to be 578. She had eaten a large breakfast and had hot chocolate prior to her blood glucose level being checked. Water was pushed and when rechecked her blood glucose level was 375.She had no reports of symptoms. Noted that her blood glucose level was 92 fasting 11/11/2019. After this instance her blood glucose level was asked to be evaluated for 5 days fasting and notify if her blood glucose level is less than 70 or greater than 300. Upon review her blood glucose glucose levels are as follows 92, 95, 98, 96, 95. Her metformin 500 mg daily was discontinued due to her noted weight loss trend and reduction and overall oral intake. The patient is presently consuming approximately 50% of her meals with assistance and cueing. She continues to have noted weight loss trends and is on a supplemental health shake from the facility.Her present weight is holding steady at 153.6 pounds. The patient is seen today sitting in her wheelchair in the common area at the table. She has just completed breakfast. She is talkative and cheerful. No evidence of distress. Patient has a past medical history of hypertension, hyperlipidemia, coronary artery disease with a history of angioplasty, dementia, type 2 diabetes mellitus, urinary incontinence, osteoarthritis, depression. Social History - Living Situation Living arrangement: Assisted living Support System: Patient has been residing at [facility] for approximately last 4 years. She has lived in assisted living for approximately 7 years after her diagnosis of dementia. She has 2 sons. Her son, Guillermo is her guardian and D ROBIN ([phone] (.. Medications/Allergies - Medications Home Medications: Ambulatory Orders Medication Instructions Recorded Confirmed Acetaminophen 500 mg PO Q4H PRN MDD NTE 2gram 05/05/19 06/04/19 daily Aspirin [Aspirin EC] 81 mg PO DAILY 05/05/19 06/04/19 Bisacodyl Supp [Dulcolax Supp] 1 ea [place] DAILY PRN MDD if NO BM 05/05/19 06/04/19 after MOM in 24hr Bismuth Subsalicylate [[place] 15 ml PO Q1H PRN MDD NTE 3 05/05/19 06/04/19 Bismuth] doses/24hour Cranberry Fruit Extract/Vit C [Cvs 1 cap PO DAILY 05/05/19 06/04/19 Cranberry-Vitamin C Sfgl] LORazepam [Ativan] 0.5 mg PO Q6H PRN 05/05/19 06/04/19 LORazepam [Ativan] 0.5 mg PO TID 05/05/19 06/04/19 Lisinopril [Prinivil] 10 mg PO BID 05/05/19 06/04/19 Loperamide HCl [Loperamide] 05/05/19 Loratadine [Allergy] 10 mg PO DAILY 05/05/19 05/05/19 Magnesium Hydroxide [Milk of 30 ml PO DAILY PRN 05/05/19 05/05/19 Magnesia] Meloxicam 7.5 mg PO DAILY 05/05/19 05/05/19 Multivitamin [Multiple Vitamins] 1 tab PO DAILY 05/05/19 06/04/19 Nystatin 1 applic TP Q8H PRN MDD as needed 05/05/19 06/04/19 reddness QUEtiapine [SEROquel] 25 mg PO QPM 05/05/19 06/04/19 Sertraline HCl [Zoloft] 150 mg PO DAILY 05/05/19 06/04/19 D'Mannose 1 g PO BID 06/04/19 06/04/19 - Allergies Allergies/Adverse Reactions: Allergies Allergy/AdvReac Type Severity Reaction Status Date / Time codeine Allergy Unknown Verified 05/05/19 15:48 Penicillins Allergy Unknown Verified 05/05/19 15:48 zolpidem [From Ambien] Allergy Unknown Verified 05/05/19 15:48 Review of Systems - Constitutional Constitutional: reports: Weight stable (Weight 153.6 pounds obtained 07/27/2019. 05/28/2019 144.6 pounds). denies: Fever - Eyes Eyes: denies: Corrective lenses - Ears, Nose & Throat Ears, Nose & Throat: denies: Dentures, Dry mouth - Cardiovascular Cardiovascular: denies: Chest pain - Respiratory Respiratory: denies: Cough, Wheezing - Gastrointestinal Gastrointestinal: reports: Constipation (intermittent). denies: Abdominal pain, Nausea, Vomiting - Genitourinary Genitourinary: reports: Incontinence - Musculoskeletal Musculoskeletal: denies: Joint pain, Assistive devices, Transfer issues - Neurological Neurological: reports: General weakness, Memory problems - Psychiatric Psychiatric: reports: Depression - Endocrine Endocrine: reports: Diabetes type 2 - Hematologic/Lymphatic Hematologic/Lymphatic: reports: Recurrent infections (frequent UTIs) - All Other Systems All Other Systems: reports: Reviewed and negative (ROS limited as patient is a poor historian due to dementia. ROS obtained from caregiver.) Physical Exam - Vital Signs Temperature: 36.5 C Pulse Rate: 57 O2 Saturation: 98 (on RA at rest) Blood Pressure: 116/79 (left wrist cuff) - Physical Exam General Appearance: positive: No acute distress, Alert, Other (OOB in wheelchair at dinning table, well groomed) ENT: positive: No signs of dehydration, Other (+endentulous) Neck: positive: Trachea midline Cardiovascular: positive: Regular rate & rhythm, No murmur Respiratory: positive: No respiratory distress, Breath sounds nml Abdomen: positive: Non-tender, Soft, Nml bowel sounds Skin: positive: No symptoms Extremities: positive: No pedal edema Neurologic/Psychiatric: positive: Disoriented to person, Disoriented to place, Disoriented to time, Unintelligible speech (word salad; talkative today) Palliative Care - POLST Patient has POLST: Yes POLST Status: DNR, Comfort Measures Pain: No pain Anorexia: Mild (1-3) (see HPI for full details) Constipation: Yes, Managed Performance Status: F AST 7B - Palliative Care Discussion: The patient had a recent elevation of her blood glucose levels after discon tinuation of metformin to reduce her pill burden as well as due to her decrease in overall oral intake and history of weight loss that has recently stabilized.Upon reevaluation of fasting blood glucose levels all her readings for 5 days were below 100. The patient is asymptomatic and remains with obtainment of blue blood glucose levels if demonstrating signs or symptoms of hyperglycemia or hypoglycemia.Present goals are to remain on comfort but then transition to hospice when appropriate. Impression and Recommendations - Palliative Care Impression: This is a william 84-year-old woman with advanced dementia, FAS T7 B, with a history of diabetes mellitus type 2 with recent discontinuation of metformin. She has had a history of weight loss that has recently stabilized on her weight is 153.6 pounds. She continues to consume health shakes. One episode of elevated blood glucose levels that has subsequently resolved likely due to her oral intake that day. Her fasting blood glucose levels have been less than 100. Palliative care to continue to provide support for symptom management, anticipatory guidance, and a transition to hospice when medically appropriate. Recommendations/Counseling Done: 1. Diabetes mellitus type 2. No recent hemoglobin A1c. The patient due to her underlying dementia would not allow for venipuncture to obtain a hemoglobin A1c and therefore has not been obtained. She is presently in a controlled setting for her diet with a rate lost trend from 2018 to the present (171.8 pounds to 153.6 pounds (. Fasting blood glucose levels are less than 100. Recent elevation x1 day of blood glucose level likely in the setting of what was consumed. Continue to remain off metformin. If her overall oral intake increases and/or the patient demonstrates signs or symptoms of hypo-or hyperglycemia then may reinstitute metformin. Continue blood glucose checks for signs and symptoms of hypoglycemia or hyperglycemia and to notify MD/SURVEY INSTRUMENT OPERATOR if blood glucose levels are less than 70 or greater than 300. Continue to monitor. 2. Dementia with behavioral disturbances. Chronic. Progressive. Supportive care. Fall precautions. No behavioral concerns reported by staff. His had a functional decline as she is less ambulatory. Continue quetiapine 25 mg nightly as ordered and if continues to remain stable consider dose reduction in the future if no evidence of agitation. Continue Zoloft as ordered. Given the patient's advanced age, dementia and chronic comorbidities a gradual decline as expected. Time Spent: CPT 48550 disclaimer: The chart note was formulated using voice recognition technology and unfortunately sound alike errors may occur.
== END 2019-08-10 09:11 | disposition home or self-care (01) ==
LOC: PC 09:10
PROVIDERS: ATTEND Nurse Practitioner Family
DX: Z51.5 Encounter for palliative care (principal); E11.9 Type 2 diabetes mellitus without complications; F03.91 Unspecified dementia, unspecified severity, with behavioral disturbance; R63.4 Abnormal weight loss; K59.00 Constipation, unspecified; Z79.899 Other long term (current) drug therapy; Z79.82 Long term (current) use of aspirin; Z66 Do not resuscitate; Z87.440 Personal history of urinary (tract) infections

== ENCOUNTER 2019-09-14 13:25 | Outpatient (CLI) | payer MEDICARE, OTHER, MEDICAID ==
--- NOTE | 2019-09-14 15:05 | CONSULTATION NOTE ---
Palliative Care Follow Up - Referral Referring Provider: Dr. Jasmyn Stallworth Time of Visit: [id number] Referral setting: Assisted living Referral Reason: S/p fall with hypotension/Dementia - Information Sources Records reviewed: Previous records reviewed History/Review of Systems obtained from: Patient, Caregiver, Nursing Exam limitations: Clinical condition (Advanced dementia) - History of Present Illness Update Brief HPI Update: This is an 84-year-old female who resides at [facility] who is seen in follow-up today for a noninjury fall sustained on 09/05 with noted blood pressure and pulse that were low with recent dosage adjustments. At the time of fall blood pressure was 92/59 with a pulse of 40. The patient was previously on lisinopril 10 mg twice daily and this was reduced to lisinopril 5mg BID on 09/07/2019 after review of her blood pressure trends there were several episodes of lower blood pressure trends. Her blood pressure was obtained daily for the last week and are as follows: 132/72, 114/80, 129/69, 130/95, 120/71, 122/91. Patient denies chest pain or discomfort. The patient has had a history of a weight loss trend and is presently holding steady at 151.6 pounds. She continues to require assistance and cueing during meals. She is on a supplemental health shake twice daily from the facility. Of late, the patient has been ambulatory less and using her wheelchair. Today however, staff reports that the patient was ambulatory independently without an assistive device. The patient is seen today sitting at the dining room table in a chair. She is talkative and cheerful. No evidence of distress. She keeps referencing the gentleman sitting beside her through her speech as well as hand gesturing. Patient has a past medical history of hypertension, hyperlipidemia, coronary artery disease with a history of angioplasty, dementia, type 2 diabetes mellitus, urinary incontinence, osteoarthritis, depression. Social History - Living Situation Living arrangement: Assisted living Support System: Patient has been residing at [facility] for approximately 4 years. She has lived in assisted living for approximately 7 years after her diagnosis of dementia. She has 2 sons. Her son, Guillermo is her guardian and D SHANEA at contact number [phone]. Guillermo reports that he and his uncle Dick have been able to do joint 30-minute visits that her socially distanced outside. Guillermo reports that it has been difficult not seeing the patient all these months due to the coronavirus pandemic in the facility being on a lockdown but understands that it is for safety and recognizes this. Medications/Allergies - Medications Home Medications: Ambulatory Orders Medication Instructions Recorded Confirmed Acetaminophen 500 mg PO Q4H PRN MDD NTE 2gram 05/05/19 06/04/19 daily Aspirin [Aspirin EC] 81 mg PO DAILY 05/05/19 06/04/19 Bisacodyl Supp [Dulcolax Supp] 1 ea [place] DAILY PRN MDD if NO BM 05/05/19 06/04/19 after MOM in 24hr Bismuth Subsalicylate [[place] 15 ml PO Q1H PRN MDD NTE 3 05/05/19 06/04/19 Bismuth] doses/24hour Cranberry Fruit Extract/Vit C [Cvs 1 cap PO DAILY 05/05/19 06/04/19 Cranberry-Vitamin C Sfgl] LORazepam [Ativan] 0.5 mg PO Q6H PRN 05/05/19 06/04/19 LORazepam [Ativan] 0.5 mg PO TID 05/05/19 06/04/19 Loperamide HCl [Loperamide] 05/05/19 Loratadine [Allergy] 10 mg PO DAILY 05/05/19 05/05/19 Magnesium Hydroxide [Milk of 30 ml PO DAILY PRN 05/05/19 05/05/19 Magnesia] Meloxicam 7.5 mg PO DAILY 05/05/19 05/05/19 Multivitamin [Multiple Vitamins] 1 tab PO DAILY 05/05/19 06/04/19 Nystatin 1 applic TP Q8H PRN MDD as needed 05/05/19 06/04/19 reddness QUEtiapine [SEROquel] 25 mg PO QPM 05/05/19 06/04/19 Sertraline HCl [Zoloft] 150 mg PO DAILY 05/05/19 06/04/19 D'Mannose 1 g PO BID 06/04/19 06/04/19 Lisinopril [Prinivil] 5 mg PO BID 09/14/19 09/14/19 - Allergies Allergies/Adverse Reactions: Allergies Allergy/AdvReac Type Severity Reaction Status Date / Time codeine Allergy Unknown Verified 05/05/19 15:48 Penicillins Allergy Unknown Verified 05/05/19 15:48 zolpidem [From Ambien] Allergy Unknown Verified 05/05/19 15:48 Review of Systems - Constitutional Constitutional: reports: Weight loss ( Weight 151.6lb August 2019; November 2018 weight 153.6.). denies: Fever - Eyes Eyes: denies: Corrective lenses - Ears, Nose & Throat Ears, Nose & Throat: denies: Dentures - Cardiovascular Cardiovascular: denies: Chest pain, Edema - Respiratory Respiratory: denies: Cough - Gastrointestinal Gastrointestinal: denies: Constipation, Diarrhea, Vomiting - Genitourinary Genitourinary: reports: Incontinence - Musculoskeletal Musculoskeletal: reports: Assistive devices. denies: Joint pain - Integumentary Integumentary: denies: Rash - Neurological Neurological: reports: General weakness, Memory problems - Psychiatric Psychiatric: reports: Depression - Endocrine Endocrine: reports: Diabetes type 2 - Hematologic/Lymphatic Hematologic/Lymphatic: reports: Recurrent infections (frequent UTIs) - All Other Systems All Other Systems: reports: Reviewed and negative (ROS limited as patient is a poor historian due to dementia. ROS obtained from caregiver and nursing.) Physical Exam - Vital Signs Temperature: 36.1 C Pulse Rate: 70 O2 Saturation: 94 (on RA at rest) Blood Pressure: 115/80 (left UE sitting) - Physical Exam General Appearance: positive: No acute distress, Alert, Other (OOB at common area table, well groomed) Eyes Bilateral: positive: Normal inspection ENT: positive: Other (+endentulous) Neck: positive: Trachea midline Cardiovascular: positive: Regular rate & rhythm, No murmur Respiratory: positive: No respiratory distress, Breath sounds nml Abdomen: positive: Non-tender, Soft, Nml bowel sounds. negative: Guarding Skin: positive: Dryness (BLE, trace) Extremities: positive: No pedal edema Neurologic/Psychiatric: positive: Mood/affect nml, Disoriented to person, Disoriented to place, Disoriented to time, Unintelligible speech (+word salad, very talkative and engaged today) Palliative Care - POLST POLST Status: DNR, Comfort Measures Pain: No pain Performance Status: FAST 7B - Palliative Care Discussion: The patient has had some noted lower blood pressure checking in light of a recent noninjury fall with adjustment of her antihypertensive medication. She has tolerated this dose reduction of her lisinopril and will continue at 5 mg twice daily at the present time. Her son/D SHANEA, Guillermo and her brother, Dick have had recent visitations for 30 minutes at a time socially distanced outside on a weekly basis. This has been positive for the patient's son as visitors were restricted due to the coronavirus pandemic at the facility. However, due to the reduction in interaction as the family was visiting on an almost daily basis her son reports that she no longer seems to recognize them. Guillermo normalizes this as being par for the course and that "the main thing is that she is safe." Right now, the patient's son/Major KELLY wishes to focus on the patient's quality of life and optimize her comfort. Impression and Recommendations - Palliative Care Impression: This is an 84-year-old female with advanced dementia, FAS T7 B with a history of hypertension with recent hypotension and history of falls. She is done well with dose adjustment of her antihypertensive medication. Palliative care to continue to provide support for symptom management, anticipatory guidance, and a transition to hospice when medically appropriate. Recommendations/Counseling Done: 1. Hypertension.Recent noted hypotension in setting of a fall and to lower blood pressure readings upon review. Has tolerated dose reduction of lisinopril 5 mg twice daily. No cardiac awareness reported. Continue lisinopril 5 mg twice daily. Continue aspirin 81 mg daily for cardiac prophylaxis. Continue to monitor blood pressure trends and adjust antihypertensive medications as needed. 2.History of falls. Fall precautions. Falls unavoidable due to dementia. 3. Dementia with behavioral disturbances. Chronic. Progressive. Supportive care. Fall precautions. No behavioral concerns reported by staff. On no disease modifying medications. Continue quetiapine 25 mg nightly as ordered and consider dose reduction in the future if no evidence of behaviors of concern. Continue sertraline 150 mg daily. Given the patient's advanced age, dementia, and chronic comorbidities a gradual decline is expected. Time Spent: CPT 77897 Plan of care reviewed with nursing staff. Discussed plan of care with son/Major Li via phone at [phone] with questions answered and addressed and in agreement with plan of care moving forward. Disclaimer: The chart note was formulated using voice recognition technology and unfortunately sound alike errors may occur.
== END 2019-09-14 13:26 | disposition home or self-care (01) ==
LOC: PC 13:25
PROVIDERS: ATTEND Nurse Practitioner Family
DX: Z51.5 Encounter for palliative care (principal); Z66 Do not resuscitate; F03.91 Unspecified dementia, unspecified severity, with behavioral disturbance; I10 Essential (primary) hypertension; Z74.09 Other reduced mobility; E11.9 Type 2 diabetes mellitus without complications; R32 Unspecified urinary incontinence; F32.9 Major depressive disorder, single episode, unspecified; Z79.82 Long term (current) use of aspirin; Z79.899 Other long term (current) drug therapy; Z87.440 Personal history of urinary (tract) infections; Z91.81 History of falling

== ENCOUNTER 2019-11-15 10:42 | Outpatient (CLI) | payer MEDICARE, OTHER, MEDICAID | END 2019-11-15 10:43 | disposition critical access hospital (66) | LOC: EMS 10:42 | PROVIDERS: ATTEND Surgery | DX: S01.01XA Laceration without foreign body of scalp, initial encounter (principal); W19.XXXA Unspecified fall, initial encounter; Y92.191 Dining room in other specified residential institution as the place of occurrence of the external cause; Z66 Do not resuscitate | CPT/HCPCS: A0425; A0429 ==

== ENCOUNTER 2019-11-15 11:07 | Emergency (ER) | payer MEDICARE, OTHER, MEDICAID ==
[2019-11-15] MEDS ORDERED: ACETAMINOPHEN 325 MG TABLET PO STA (11:19)
[2019-11-15 11:23] VITALS: BP 135/71
--- NOTE | 2019-11-15 11:36 | ED Physician Documentation ---
PD HPI HEAD INJURY - Stated complaint Stated Complaint: FALL/HEAD LAC - History obtained from History obtained from: Patient, Family, EMS - History of Present Illness Mechanism of head injury: Fell (she fell in the dining room at [facility] and struck back of head. No LOC. Had some bleeding from lac on back of head. No change in mentation. Denies other injury. EMS called and brought pt to ER.) Timing - onset: How many minutes ago (30), Today Location of injury: Back Quality of pain: Aching, Dull Associated symptoms: No: LOC, AMS, Nausea / vomiting Symptoms worsen with: Palpation Contributing factors: No: Anticoagulated, Intoxicated Similar symptoms before: Diagnosis (her son says she has balance problems and enough dementia to forget to use her walker. Falls often.) Recently seen: Not recently seen Review of Systems Unable to obtain: Dementia Cardiac: denies: Chest pain / pressure GI: denies: Abdominal Pain Skin: reports: Laceration (s) Musculoskeletal: reports: Neck pain (mild). denies: Back pain Neurologic: reports: Confused (at baseline with her dementia). denies: Focal weakness, Numbness, Altered mental status PD PAST MEDICAL HISTORY - Past Medical History Cardiovascular: Hypertension, High cholesterol, Coronary artery disease (h/o angioplasty 1990) Respiratory: None Neuro: Dementia Endocrine/Autoimmune: Type 2 diabetes GI: None DATABASE DEVELOPMENT PROJECT MANAGER: None : Incontinence HEENT: None Psych: Depression Musculoskeletal: Osteoarthritis Derm: None - Past Surgical History General: Cholecystectomy (1989), Appendectomy (1958), Other (Hernia surgery) Ortho: Other (Back surgery 1998) /DATABASE DEVELOPMENT PROJECT MANAGER: Other (Breast Biopsy 1995; Total hysterectomy with BSO) Cardiovascular: Angioplasty (1990) - Present Medications Home Medications: Ambulatory Orders Medication Instructions Recorded Confirmed Acetaminophen 500 mg PO Q4H PRN MDD NTE 2gram 05/05/19 06/04/19 daily Aspirin [Aspirin EC] 81 mg PO DAILY 05/05/19 06/04/19 Bisacodyl Supp [Dulcolax Supp] 1 ea [place] DAILY PRN MDD if NO BM 05/05/19 06/04/19 after MOM in 24hr Bismuth Subsalicylate [[place] 15 ml PO Q1H PRN MDD NTE 3 05/05/19 06/04/19 Bismuth] doses/24hour Cranberry Fruit Extract/Vit C [Cvs 1 cap PO DAILY 05/05/19 06/04/19 Cranberry-Vitamin C Sfgl] LORazepam [Ativan] 0.5 mg PO Q6H PRN 05/05/19 06/04/19 LORazepam [Ativan] 0.5 mg PO TID 05/05/19 06/04/19 Loperamide HCl [Loperamide] 05/05/19 Loratadine [Allergy] 10 mg PO DAILY 05/05/19 05/05/19 Magnesium Hydroxide [Milk of 30 ml PO DAILY PRN 05/05/19 05/05/19 Magnesia] Meloxicam 7.5 mg PO DAILY 05/05/19 05/05/19 Multivitamin [Multiple Vitamins] 1 tab PO DAILY 05/05/19 06/04/19 Nystatin 1 applic TP Q8H PRN MDD as needed 05/05/19 06/04/19 reddness QUEtiapine [SEROquel] 25 mg PO QPM 05/05/19 06/04/19 Sertraline HCl [Zoloft] 150 mg PO DAILY 05/05/19 06/04/19 D'Mannose 1 g PO BID 06/04/19 06/04/19 Lisinopril [Prinivil] 5 mg PO BID 09/14/19 09/14/19 - Allergies Allergies/Adverse Reactions: Allergies Allergy/AdvReac Type Severity Reaction Status Date / Time codeine Allergy Unknown Verified 11/15/19 11:23 Penicillins Allergy Unknown Verified 11/15/19 11:23 zolpidem [From Ambien] Allergy Unknown Verified 11/15/19 11:23 - Living Situation Living Situation: reports: Alone Living Arrangement: reports: Assisted living - POLST Patient has POLST: Yes PD ED PE NORMAL - Vitals Vital signs reviewed: Yes - General General: No acute distress, Well developed/nourished, Other (tender at occiput with local swelling and small 1.5 cm laceration without current bleeding. No FB. ). No: Alert and oriented X 3 (alert and oriented to person. Not sure of place nor month. Chherful and smiles. ) - HEENT HEENT: PERRL, EOMI, Pharynx benign - Neck Neck: Supple, no meningeal sign, No bony TTP - Respiratory Respiratory: Clear bilaterally, Other (no chestwall tenderness. ) - Abdomen Abdomen: Soft, Non tender - Derm Derm: Normal color, Warm and dry - Extremities Extremities: No tenderness to palpate, Normal ROM s pain - Neuro Neuro: No motor deficit, No sensory deficit, Normal speech Results - Vitals Vitals: Vital Signs - 24 hr 11/15/19 11:17 Temperature 36.6 C Heart Rate 95 Respiratory 16 Rate Blood Pressure 135/71 H O2 Saturation 97 Oxygen O2 Source Room air - Rads (name of study) head CT Radiology: Prelim report reviewed (no ICH), See rad report cervical CT Radiology: Prelim report reviewed (no acute fractures.), See rad report Procedures - Laceration (location) occiput Length in cm: 1.5 Wound type: Curved, Into subcut fat, Clean Neurovascular status: Sensory intact Anesthesia: Lidocaine 1% with epi Wound Preparation: Irrigated copiously NS, Wound explored, To the base. No: FB identified Skin layer closure: Maddy Other: Patient tolerated well, No complications, Neurovascular intact, Tetanus UTD Complexity: Simple PD MEDICAL DECISION MAKING - ED course Complexity details: considered differential (scalp lac from fall due to poor balance. No LOC nor syncope. ), d/w patient Departure - Departure Disposition: 01 Home, Self Care Clinical Impression: Accidental fall Qualifiers: Encounter type: initial encounter Qualified Code(s): W19.XXXA - Unspecified fall, initial encounter Scalp laceration Qualifiers: Encounter type: initial encounter Qualified Code(s): S01.01XA - Laceration without foreign body of scalp, initial encounter Dementia Qualifiers: Dementia type: unspecified type Dementia behavioral disturbance: with behavioral disturbance Qualified Code(s): F03.91 - Unspecified dementia with behavioral disturbance Condition: Stable Record reviewed to determine appropriate education?: Yes Comments: It is okay to wash and shower. Clean off the wound twice a day with soap and water, or peroxide and water. Apply some antibiotic ointment to it twice daily to keep it moist. Also to watch for signs of infection such as purulence, redness or increasing pain. Staple removal 10 days Discharge Date/Time: 11/15/19 13:08
--- NOTE | 2019-11-15 12:14 | CT Report ---
PROCEDURE: HEAD WO INDICATIONS: fall, struck head TECHNIQUE: Noncontrast 4.5 mm thick angled axial sections acquired from the foramen magnum to the vertex. For r adiation dose reduction, the following was used: automated exposure control, adjustment of mA and/or kV according to patient size. COMPARISON: Correlation is made with the accompanying cervical spine CT, 11/15/2019. FINDINGS: Image quality: Study is limited by motion artifact. Images repeated, with some improvement. CSF spaces: Basal cisterns are patent. No extra-axial fluid collections. Ventricles are normal in size and shape. Brain: No midline shift. No intracranial masses or hemorrhage. Peters-white matter interface is norm al. Skull and face: There is a laceration and hematoma seen posteriorly and superiorly on the right. The re is an additional smaller scalp laceration seen involving the left parietal region. No underlying c alvarial fractures can be seen at these sites. Calvarium and visualized facial bones are intact, with out suspicious lesions. Sinuses: Visualized sinuses and mastoids are clear. IMPRESSION: Scalp lacerations with hematomas can be seen. No underlying calvarial fracture is seen. No acute intracranial hemorrhage is seen. Reviewed by: Mendel Garcia MD on 11/15/2019 11:12 AM ESAU Approved by: Mendel Garcia MD on 11/15/2019 11:12 AM ESAU Station ID: [id number]
--- NOTE | 2019-11-15 12:16 | CT Report ---
PROCEDURE: CERVICAL SPINE WO INDICATIONS: fall TECHNIQUE: Noncontrast 3 mm thick sections acquired from the skull base to the T4 level. Sagittal and coronal r eformats were then constructed. For radiation dose reduction, the following was used: automated exp osure control, adjustment of mA and/or kV according to patient size. COMPARISON: Correlation is made with the accompanying head CT, 11/15/2019 FINDINGS: Image quality: Excellent. Bones: No fractures or dislocations. Visualized superior ribs are intact. There is reversal of the normal cervical lordosis, with the apex at the C5-C6 level. There is mild to moderate disc space narrowing seen at C4-C5. Severe disc space narrowing is seen at C5-C6, with brid ging endplate osteophytes. Posteriorly directed endplate osteophytes are seen at this level. Moderate to severe disc space narrowing is seen at C6-C7. There is partial fusion of facet joints seen at C2- C3. Soft tissues: Prevertebral soft tissues are normal in thickness. No paravertebral hematomas. No ap ical pneumothoraces. IMPRESSION: No acute fractures are seen. Degenerative changes are seen, which are worst at the C5-C6 level. Reviewed by: Mendel Garcia MD on 11/15/2019 11:14 AM E[facility]U Approved by: Mendel Garcia MD on 11/15/2019 11:14 AM ESAU Station ID: [id number]
== END 2019-11-15 13:08 | disposition home or self-care (01) ==
LOC: EDUNIT# → EDBD → ED 11:07
DX: S01.01XA Laceration without foreign body of scalp, initial encounter (principal); W01.10XA Fall on same level from slipping, tripping and stumbling with subsequent striking against unspecified object, initial encounter; Y92.128 Other place in nursing home as the place of occurrence of the external cause; Z91.81 History of falling; M50.322 Other cervical disc degeneration at C5-C6 level; F03.91 Unspecified dementia, unspecified severity, with behavioral disturbance; E11.9 Type 2 diabetes mellitus without complications; I10 Essential (primary) hypertension; Z79.82 Long term (current) use of aspirin
CPT/HCPCS: 12001; 70450; 72125; 99284; A9270

== ENCOUNTER 2019-11-15 13:01 | Outpatient (CLI) | payer MEDICARE, OTHER, MEDICAID | END 2019-11-15 13:02 | disposition home or self-care (01) | LOC: EMS 13:01 | PROVIDERS: ATTEND Surgery | DX: F03.90 Unspecified dementia, unspecified severity, without behavioral disturbance, psychotic disturbance, mood disturbance, and anxiety (principal); S01.01XD Laceration without foreign body of scalp, subsequent encounter; W18.30XD Fall on same level, unspecified, subsequent encounter | CPT/HCPCS: A0425; A0428 ==

== ENCOUNTER 2020-02-08 14:15 | Outpatient (CLI) | payer MEDICARE, OTHER, MEDICAID ==
--- NOTE | 2020-02-08 17:48 | PROVIDER PROGRESS NOTE ---
HPI/Interval History - HPI/Interval History This is an 84-year-old female who resides at [facility] who is seen in follow-up today due to recent Covid positive status and advanced dementia via telemedicine with Lauren PRICE. The patient was diagnosed with coronavirus 01/19. She has been doing well since her diagnosis and presently is without respiratory symptoms such as cough, wheezing or shortness of breath. She is not requiring supplemental oxygen. She presently has morphine concentrate as needed for any pain or shortness of breath and has not required administration. The patient has a history of a weight loss trend and last weight at 169.9 pounds. She reports continues to require assistance and cueing during meals. She is on supplemental health shakes twice daily from the facility. The patient does have a history of anxiety with some evidence of behaviors periodically but is easily redirectable and symptoms are manageable. She continues on routine lorazepam as well as sertraline and quetiapine. The patient is seen in the [facility] area in her wheelchair. She is bright and alert and quite talkative with a word salad today. No evidence of acute distress. Patient has a past medical history of hypertension, hyperlipidemia, coronary artery disease with a history of angioplasty, dementia, type 2 diabetes mellitus, urinary incontinence, osteoarthritis, depression. Review of Systems - Constitutional Constitutional: reports: Weight loss. denies: Fever - Eyes Eyes: denies: Corrective lenses - Ears, Nose & Throat Ears, Nose & Throat: denies: Dentures - Cardiovascular Cardiovascular: denies: Edema - Respiratory Respiratory: denies: Cough, Wheezing - Gastrointestinal Gastrointestinal: reports: Good appetite (requires assistance with meals). denies: Constipation, Vomiting - Genitourinary Genitourinary: reports: Incontinence. denies: Hematuria - Musculoskeletal Musculoskeletal: reports: Assistive devices, Transfer issues. denies: Joint pain (history of OA pain that is controlled with meloxicam) - Integumentary Integumentary: denies: Rash - Neurological Neurological: reports: General weakness, Memory problems - Psychiatric Psychiatric: reports: Depression, Anxiety - Endocrine Endocrine: denies: Hypothyroidism - Hematologic/Lymphatic Hematologic/Lymph: Recurrent infections (frequent UTIs) - All Other Systems All Other Systems: reports: Reviewed and negative (Review of systems is limited as patient is a poor historian due to dementia and supplemental review of systems obtained from Lauren PRICE.) Medications/Allergies - Medications Home Medications: Ambulatory Orders Medication Instructions Recorded Confirmed Acetaminophen 500 mg PO Q4H PRN MDD NTE 2gram 05/05/19 06/04/19 daily Aspirin [Aspirin EC] 81 mg PO DAILY 05/05/19 06/04/19 Bisacodyl Supp [Dulcolax Supp] 1 ea AR DAILY PRN MDD if NO BM 05/05/19 06/04/19 after MOM in 24hr Bismuth Subsalicylate [[place] 15 ml PO Q1H PRN MDD NTE 3 05/05/19 06/04/19 Bismuth] doses/24hour Cranberry Fruit Extract/Vit C [[facility] 1 cap PO DAILY 05/05/19 06/04/19 Cranberry-Vitamin C Sfgl] LORazepam [Ativan] 0.5 mg PO Q6H PRN 05/05/19 06/04/19 LORazepam [Ativan] 0.5 mg PO TID 05/05/19 06/04/19 Loperamide HCl [Loperamide] 05/05/19 Loratadine [Allergy] 10 mg PO DAILY 05/05/19 05/05/19 Magnesium Hydroxide [Milk of 30 ml PO DAILY PRN 05/05/19 05/05/19 Magnesia] Meloxicam 7.5 mg PO DAILY 05/05/19 05/05/19 Multivitamin [Multiple Vitamins] 1 tab PO DAILY 05/05/19 06/04/19 Nystatin 1 applic TP Q8H PRN MDD as needed 05/05/19 06/04/19 reddness QUEtiapine [SEROquel] 25 mg PO QPM 05/05/19 06/04/19 Sertraline HCl [Zoloft] 150 mg PO DAILY 05/05/19 06/04/19 D'Mannose 1 g PO BID 06/04/19 06/04/19 Lisinopril [Prinivil] 5 mg PO BID 09/14/19 09/14/19 Morphine Sulfate [Morphine Sulf 0.25 ml PO Q2H PRN 02/09/20 02/09/20 Oral (Roxanol)] - Allergies Allergies/Adverse Reactions: Allergies Allergy/AdvReac Type Severity Reaction Status Date / Time codeine Allergy Unknown Verified 02/09/20 10:08 Penicillins Allergy Unknown Verified 02/09/20 10:08 zolpidem [From Ambien] Allergy Unknown Verified 02/09/20 10:08 Physical Exam - Physical Exam VS 97.3F, 20, 65, 129/68, 99% on RA Constitutional: well groomed, NAD, elderly woman OOB in wheelchair ENT: MMM Respiratory: symmetric chest rise, normal work of breathing Cardiovascular: no edema to LE visible GI: no abdominal distention Neuro: awake, alert, moves all extremities spontaneously Psych: no evidence of anxiety, +word salad and talkative. Palliative Care - POLST Patient has POLST: Yes POLST Status: DNR, Comfort Measures Pain: No pain Performance Status: FAST 7C - Palliative Care Discussion: Patient with recent diagnosis of coronavirus as of 01/19 and has fared very well with no respiratory symptoms. Patient continues to have a slow, functional decline related to her advanced dementia. She has some underlying anxiety and agitation that is overall controlled with routine lorazepam, sertraline and scheduled quetiapine. Her behaviors are easily manageable and redirectable per facility staff. Staff overall offer up no acute concerns or needed changes regarding the patient at the present time. Impression and Recommendations - Palliative Care Impression: This is a william 84-year-old female with advanced dementia, FAS T7 C who with a recent diagnosis of coronavirus without respiratory systems and a history of falls. She has done very well since diagnosis of her coronavirus. Palliative care to continue to provide support for symptom management, anticipatory guidance and a transition to hospice when medically appropriate. Recommendations/Counseling Done: 1. Patel virus positive without respiratory symptoms. Initial diagnosis on 01/20/2020 with supportive medications in place for the patient. Staff continuing to monitor closely with support by facility product manager medical device Dr. Cruz. 2. Hypertension. Has tolerated dose reduction of lisinopril to 5 mg twice daily. No cardiac awareness reported. Continue lisinopril as ordered with aspirin 81 mg daily for cardiac prophylaxis. Continue to monitor blood pressure trends and adjust antihypertensive medications as needed. 3. Anxiety. Per nursing staff controlled. Continue routine lorazepam and sertraline as ordered. Overstimulation. Continue to redirect if symptoms anxiety flare and patient has as needed lorazepam available if needed. 4. Dementia with behavioral disturbances. Chronic. Progressive. Supportive care. Fall precautions. Presently no behavioral concerns reported by staff. On no disease modifying agents. Continue quetiapine 25 mg nightly as ordered. Continue sertraline 150 mg daily. Given the patient's advanced age, dementia and chronic comorbidities a gradual decline is expected. Time Spent: CPT 61426QC Plan of care reviewed with facility RNLauren and in agreement. Left message for patient's son/Guillermo WARD at [phone] updating regarding care and may return call if any further questions or concerns. Disclaimer: The chart note was formulated using voice recognition technology and unfortunately sound alike errors may occur. Telehealth Visit - TeleMedicine Visit Referring Provider: Dr. Jasmyn Stallworth Visit Type:: TeleHealth Video Call Patient agrees and consents to this telehealth visit type: Yes Patient agrees to have their insurance billed: Yes Time spent:: Initated 1415 Video type:: Chyna Participants:: Other (DEE Aguilar) Location of provider:: Office Location of patient:: Assisted Living Provider Statement: I spent 100% on the TeleHealth Video Call with the patient with greater than 50% spent counseling the patient and coordination of care.
== END 2020-02-08 14:16 | disposition home or self-care (01) ==
LOC: PC 14:15
PROVIDERS: ATTEND Nurse Practitioner Family
DX: Z51.5 Encounter for palliative care (principal); U07.1 COVID-19; I10 Essential (primary) hypertension; F41.9 Anxiety disorder, unspecified; F03.91 Unspecified dementia, unspecified severity, with behavioral disturbance; I25.10 Atherosclerotic heart disease of native coronary artery without angina pectoris; E11.9 Type 2 diabetes mellitus without complications; Z66 Do not resuscitate

== ENCOUNTER 2020-03-30 12:40 | Outpatient (CLI) | payer MEDICARE, OTHER, MEDICAID ==
--- NOTE | 2020-03-30 14:51 | CONSULTATION NOTE ---
Palliative Care Follow Up - Referral Referring Provider: LILIANA Grover Time of Visit: [id number] Referral setting: Assisted living Referral Reason: Dementia/Weight Loss/Depression - Information Sources Records reviewed: Previous records reviewed History/Review of Systems obtained from: Patient, Caregiver, Nursing Exam limitations: Clinical condition (Advanced Dementia) - History of Present Illness Update Brief HPI Update: This is an 84-year-old female who is seen in follow-up today at [facility] for advanced dementia, depression, weight loss and osteoarthritis. The patient continues to demonstrate a gradual decline with her weight despite good consumption of her meals with assistance. She also continues on health shakes twice a day. Her weight in November 2019 was 167.4 pounds. She presently weighs 158.8 pounds as of February 2020 which is a 5.13% weight loss in 6 months. The patient has a history of anxiety and depression with periodic crying spells. Often times she is able to be redirected with cues were music. If further additional management is needed then as needed lorazepam was administered. She is presently on routine lorazepam 3 times daily, as well as sertraline and quetiapine as scheduled. Given the patient continues to have periods of labile moods would not benefit from dose reduction of lorazepam at the present time. The patient has had a decline in her functional ability. Approximately 1 year ago she was able to ambulate. Now she is wheelchair-bound in a tilt in space wheelchair. Is becoming increasingly difficult for her staff to transfer her. She is a two-person transfer. Facility is working on obtainment of a hospital bed as in the future she is moving towards the need of a Russell lift. No recent falls. She was diagnosed with Covid . She was without respiratory symptoms. She continues to have noted fatigue. The patient will have days that she is quite alert and verbal. Today, is 1 of those days that she is out in the common area in her tilt in space wheelchair bright and alert and quite talkative with a word salad. No evidence of distress. Past Medical History: Patient has a past medical history of hypertension, hyperlipidemia, coronary artery disease with a history of angioplasty, dementia, type 2 diabetes mellitus, urinary incontinence, osteoarthritis, depression, COVID-19 12/2019. Social History - Living Situation Living arrangement: Assisted living Support System: The patient has been residing at [facility] for approximately 5 years. She was living in assisted living for approximately 7 years after her diagnosis of dementia. She has 2 sons. Her son, Guillermo is her guardian and DPOA at contact number [phone]. Guillermo is involved in the patient's care and management. He likes to be kept informed by the facility of status changes in the patient's. Medications/Allergies - Medications Home Medications: Ambulatory Orders Medication Instructions Recorded Confirmed Acetaminophen 500 mg PO Q4H PRN MDD NTE 2gram 05/05/19 06/04/19 daily Aspirin [Aspirin EC] 81 mg PO DAILY 05/05/19 06/04/19 Bisacodyl Supp [Dulcolax Supp] 1 ea [place] DAILY PRN MDD if NO BM 05/05/19 06/04/19 after MOM in 24hr Bismuth Subsalicylate [[place] 15 ml PO Q1H PRN MDD NTE 3 05/05/19 06/04/19 Bismuth] doses/24hour Cranberry Fruit Extract/Vit C [[facility] 1 cap PO DAILY 05/05/19 06/04/19 Cranberry-Vitamin C Sfgl] LORazepam [Ativan] 0.5 mg PO Q6H PRN 05/05/19 06/04/19 LORazepam [Ativan] 0.5 mg PO TID 05/05/19 06/04/19 Loperamide HCl [Loperamide] 05/05/19 Loratadine [Allergy] 10 mg PO DAILY 05/05/19 05/05/19 Magnesium Hydroxide [Milk of 30 ml PO DAILY PRN 05/05/19 05/05/19 Magnesia] Meloxicam 7.5 mg PO DAILY 05/05/19 05/05/19 Multivitamin [Multiple Vitamins] 1 tab PO DAILY 05/05/19 06/04/19 Nystatin 1 applic TP Q8H PRN MDD as needed 05/05/19 06/04/19 reddness QUEtiapine [SEROquel] 25 mg PO QPM 05/05/19 06/04/19 Sertraline HCl [Zoloft] 150 mg PO DAILY 05/05/19 06/04/19 D'Mannose 1 g PO BID 06/04/19 06/04/19 Lisinopril [Prinivil] 5 mg PO BID 09/14/19 09/14/19 Morphine Sulfate [Morphine Sulf 0.25 ml PO Q2H PRN 02/09/20 02/09/20 Oral (Roxanol)] - Allergies Allergies/Adverse Reactions: Allergies Allergy/AdvReac Type Severity Reaction Status Date / Time codeine Allergy Unknown Verified 02/09/20 10:08 Penicillins Allergy Unknown Verified 02/09/20 10:08 zolpidem [From Ambien] Allergy Unknown Verified 02/09/20 10:08 Review of Systems - Constitutional Constitutional: reports: Fatigue, Weight loss (02/27/2020 weight 158.8 pounds. 11/26/2019 weight 167.4 pounds). denies: Fever - Eyes Eyes: denies: Corrective lenses - Ears, Nose & Throat Ears, Nose & Throat: denies: Dentures - Cardiovascular Cardiovascular: denies: Edema - Respiratory Respiratory: denies: Cough - Gastrointestinal Gastrointestinal: reports: Good appetite (requires assistance with meals). denies: Constipation (controlled with bowel movement daily or every other day upon review.), Vomiting - Genitourinary Genitourinary: reports: Incontinence. denies: Hematuria - Musculoskeletal Musculoskeletal: reports: Assistive devices, Transfer issues (will be stiff with transfers making it difficult for staff to transfer from one sitting object to another.). denies: Joint pain (history of OA pain that is controlled with meloxicam) - Integumentary Integumentary: denies: Rash - Neurological Neurological: reports: General weakness, Memory problems - Psychiatric Psychiatric: reports: Depression, Anxiety - Endocrine Endocrine: reports: Diabetes type 2 (diet controlled, previously on metformin) - Hematologic/Lymphatic Hematologic/Lymph: Recurrent infections (frequent UTIs) - All Other Systems All Other Systems: reports: Reviewed and negative (Review of systems is limited as patient is a poor historian due to dementia and supplemental review of systems obtained from RNLauren and [facility] De La [facility].) Physical Exam - Vital Signs Temperature: 36.6 C Pulse Rate: 61 O2 Saturation: 96 (on RA at rest) Blood Pressure: 135/68 (left wrist) - Physical Exam General Appearance: positive: No acute distress, Alert, Other (in tilt in space chair in common area, well groomed) Eyes Bilateral: positive: Normal inspection ENT: positive: No signs of dehydration, Other (+endentulous) Neck: positive: Trachea midline Cardiovascular: positive: Regular rate & rhythm Respiratory: positive: No respiratory distress, Breath sounds nml. negative: Rales Abdomen: positive: Non-tender, Soft, Nml bowel sounds Skin: positive: Dryness (generalized) Extremities: positive: Non-tender, No pedal edema, Other (spontaneously moves all 4 extremities without s/s of discomfort) Neurologic/Psychiatric: positive: Mood/affect nml (no anxiety or evidence of distress via crying), Disoriented to person, Disoriented to place, Disoriented to time, Unintelligible speech (+word salad) Palliative Care - POLST Patient has POLST: Yes POLST Status: DNR, Comfort Measures Pain: No pain (OA pain controlled with daily meloxicam) Drowsiness/Sedation: Moderate (4-6) (sleeping more during the day) Nausea: None Anorexia: None Dyspnea: None Depression: Mild (1-3) (crying spells that can often be re-directed with music or engagement) Sleep: Sleeps well Constipation: Managed Performance Status: FAST 7C - Palliative Care Discussion: The patient has recovered after diagnosis of coronavirus 01/20/2020 with no respiratory symptoms. She does continue to have increased fatigue and sleeping more during the day per staff report. She continues to have a slow, functional decline related to advancement of her dementia. She is requiring increased assistance from transfers by staff and facility RN is looking in the future when the patient may need to transition to a Russell lift sooner rather than later, and obtainment of a hospital bed to facilitate these transfer safely. The patient has a history of underlying anxiety, agitation and depression. Presently, staff report that her symptoms are well controlled with routine lorazepam and is scheduled sertraline and quetiapine. She does have periods where she will have crying spells but often this can be redirected with engagement or music. If these interventions are not effective then an as needed dose of lorazepam is administered. Therefore, at this time will not reduce lorazepam dosage. Despite a hearty appetite and consuming the majority of her meals she continues to have a gradual weight loss related to advancement of her dementia. Impression and Recommendations - Palliative Care Impression: This is an 84-year-old female with advanced dementia, FAS T7 C, with gradual functional decline and weight loss. She has symptoms of anxiety and depression that overall are well controlled. Palliative care to continue right support for symptom management, care coordination, anticipatory guidance and a transition to hospice when medically appropriate. Recommendations/Counseling Done: 1. Weight loss. Due to progression of her underlying dementia. Weight presently 158.8 pounds with a 5.13% weight loss in 6 months. Continue health shakes twice daily. Continue assistance with meals. Continue to monitor weekly weights. 2. Diabetes mellitus type 2. No recent hemoglobin A1c. Metformin has bisque discontinued. Has available blood glucose check for signs and symptoms of hypo or hyperglycemia and to notify MD/LASER PRINT OPERATOR if blood glucose levels are less than 70 or greater than 300. Continue to monitor. 3. Osteoarthritis. No reports of pain or discomfort on evaluation. No history of GI bleed. Continue meloxicam 7.5 mg daily as ordered. If patient continues without any evidence of pain by assessment of facility staff may consider trial discontinuation as the patient is no longer ambulatory. Continue to monitor. 4. Depression and anxiety. Overall, fairly well controlled. Intermittent episodes of crying spells. Given the patient continues to have episodes of crying spells will continue lorazepam as ordered 0.5 mg 3 times daily. Continue lorazepam 0.5 mg every 6 hours as needed for anxiety. Continue sertraline 150 mg daily. Avoid overstimulation. Continue to redirect if symptoms of anxiety flare. 5. History of frequent urinary tract infections. No recent UTIs. Continue cranberry supplementation and d-mannose for UTI prophylaxis. Continue to encourage oral hydration. 6.Dementia with behavioral disturbances. Chronic. Progressive. Supportive care. Fall precautions. Presently unknown disease modifying agents. Continue quetiapine 25 mg nightly as ordered. Given the patient's advanced age, dementia and chronic morbidities a gradual decline is expected. 7. Advance care planning. POLST in place as DN AR with comfort measures. Patient presently showing signs and symptoms of further progression of her underlying dementia but is not quite hospice appropriate at the present time. We will continue to monitor and provide support to the patient, facility and family as the patient continues to have a slow, progressive decline. Goal is to focus on comfort measures within the facility. Time Spent: CPT 29752 Plan of care reviewed with facility RNLauren and in agreement. Contacted patient's son/DPOAGuillermo at [phone] and discussed patient's slow, gradual decline related to advancement of her dementia and noted weight loss. Questions answered and addressed with the patient's son and no changes to medical plan at the present time. Patient's son/DPOA aware to contact palliative care if any questions or concerns moving forward. Disclaimer: The chart note was formulated using voice recognition technology and unfortunately sound alike errors may occur.
== END 2020-03-30 12:41 | disposition home or self-care (01) ==
LOC: PC 12:40
PROVIDERS: ATTEND Nurse Practitioner Family
DX: Z51.5 Encounter for palliative care (principal); R63.4 Abnormal weight loss; E11.9 Type 2 diabetes mellitus without complications; M19.90 Unspecified osteoarthritis, unspecified site; F32.9 Major depressive disorder, single episode, unspecified; F41.9 Anxiety disorder, unspecified; F03.91 Unspecified dementia, unspecified severity, with behavioral disturbance; Z86.16 Personal history of COVID-19; Z66 Do not resuscitate

== ENCOUNTER 2020-06-09 09:15 | Outpatient (CLI) | payer MEDICARE, OTHER, MEDICAID ==
--- NOTE | 2020-06-09 13:50 | CONSULTATION NOTE ---
Palliative Care Follow Up - Referral Referring Provider: LILIANA Grover Time of Visit: 0915 Referral setting: Assisted living Referral Reason: Dementia/Weight Loss/Anxiety/Depression - Information Sources Records reviewed: Previous records reviewed History/Review of Systems obtained from: Patient, Caregiver, Nursing Exam limitations: Clinical condition (Advanced Dementia) - History of Present Illness Update Brief HPI Update: This is an 85-year-old female who was seen in follow-up today at [facility] for advanced dementia, weight loss, depression, anxiety and osteoarthritis. The patient is consuming typically 100% of her meals. She is on health shakes twice a day. Her weight in November 2019 was 167.4 pounds. She had a gradual weight loss and has subsequently rebounded with present weight of 171.4 pounds on 05/26/2020. Staff deny any acute concerns during mealtimes. She requires ass istance during meals. No reports of coughing or evidence of dysphagia. The patient has a history of anxiety and depression with periodic crying spells. None have been reported recently. She is able to be redirected with music. She presently is on routine lorazepam 3 times daily as well as sertraline and quetiapine as scheduled. Given her history of labile moods she would not benefit from a dose reduction of lorazepam at this time. She does have a history of osteoarthritis and presently Her pain is controlled with meloxicam 7.5 mg daily. Caregiving staff report that at rest she does not display any visual signs or symptoms of pain. However, when actively transferring her or moving her she does display visible signs of discomfort. She is mainly wheelchair-bound and has obtained a tilt in space wheelchair and this has eased in her ability to participate in facility activities as well as during mealtimes. No recent falls. In late March 2019 she did have local eye irritation that resolved with warm compress application. Being out of bed in the common area in her tilt in space wheelchair, bright and alert and coming along to music. She just had her hair perm at the hairdresser. No evidence of acute distress. Past Medical History: Patient has a past medical history of hypertension, hyperlipidemia, coronary artery disease with a history of angioplasty, dementia, type 2 diabetes mellitus, urinary incontinence, osteoarthritis, depression, COVID-19 12/2019. Social History - Living Situation Living arrangement: Assisted living Support System: The patient has been residing at [facility] for approximately 5 years. She was living in assisted living for approximately 7 years after her diagnosis of dementia. She has 2 sons. Her son, Guillermo is her guardian and DPOA at contact number [phone]. Guillermo is involved in the patient's care and management. He likes to be kept informed by the facility of status changes on the patient. The patient's son, Guillermo and her brother, Dick, 2 weeks ago were able to have an in person visit and this went extremely well per the son's report. The patient was alert and jovial and engaged and interactive with them. It had been many months since the patient's son was able to have in person interaction over the last year and he was prepping himself the worst and instead was pleasantly surprised. Medications/Allergies - Medications Home Medications: Ambulatory Orders Medication Instructions Recorded Confirmed Acetaminophen 500 mg PO Q4H PRN MDD NTE 2gram 05/05/19 06/04/19 daily Aspirin [Aspirin EC] 81 mg PO DAILY 05/05/19 06/04/19 Bisacodyl Supp [Dulcolax Supp] 1 ea ID DAILY PRN MDD if NO BM 05/05/19 06/04/19 after MOM in 24hr Bismuth Subsalicylate [[place] 15 ml PO Q1H PRN MDD NTE 3 05/05/19 06/04/19 Bismuth] doses/24hour Cranberry Fruit Extract/Vit C [Cvs 1 cap PO DAILY 05/05/19 06/04/19 Cranberry-Vitamin C Sfgl] LORazepam [Ativan] 0.5 mg PO Q6H PRN 05/05/19 06/04/19 LORazepam [Ativan] 0.5 mg PO TID 05/05/19 06/04/19 Loperamide HCl [Loperamide] 05/05/19 Loratadine [Allergy] 10 mg PO DAILY 05/05/19 05/05/19 Magnesium Hydroxide [Milk of 30 ml PO DAILY PRN 05/05/19 05/05/19 Magnesia] Meloxicam 7.5 mg PO DAILY 05/05/19 05/05/19 Multivitamin [Multiple Vitamins] 1 tab PO DAILY 05/05/19 06/04/19 Nystatin 1 applic TP Q8H PRN MDD as needed 05/05/19 06/04/19 reddness QUEtiapine [SEROquel] 25 mg PO QPM 05/05/19 06/04/19 Sertraline HCl [Zoloft] 150 mg PO DAILY 05/05/19 06/04/19 D'Mannose 1 g PO BID 06/04/19 06/04/19 Lisinopril [Prinivil] 5 mg PO BID 09/14/19 09/14/19 Morphine Sulfate [Morphine Sulf 0.25 ml PO Q2H PRN 02/09/20 02/09/20 Oral (Roxanol)] - Allergies Allergies/Adverse Reactions: Allergies Allergy/AdvReac Type Severity Reaction Status Date / Time codeine Allergy Unknown Verified 02/09/20 10:08 Penicillins Allergy Unknown Verified 02/09/20 10:08 zolpidem [From Ambien] Allergy Unknown Verified 02/09/20 10:08 Review of Systems - Constitutional Constitutional: reports: Weight gain (weight 171.4lb on 05/26/2020; 02/27/2020 weight 158.8 pounds. 11/26/2019 weight 167.4 pounds). denies: Fever - Eyes Eyes: denies: Irritation - Ears, Nose & Throat Ears, Nose & Throat: denies: Dentures - Cardiovascular Cardiovascular: denies: Edema - Respiratory Respiratory: denies: Cough - Gastrointestinal Gastrointestinal: reports: Good appetite (requires assistance with meals, consuming 100% of her meals on average). denies: Constipation (controlled), Vomiting - Genitourinary Genitourinary: reports: Incontinence - Musculoskeletal Musculoskeletal: reports: Assistive devices (in tilt in space wheelchair), Transfer issues. denies: Joint pain (history of OA pain that is controlled with meloxicam, see HPI) - Integumentary Integumentary: denies: Rash - Neurological Neurological: reports: General weakness, Memory problems - Psychiatric Psychiatric: reports: Depression, Anxiety - Endocrine Endocrine: reports: Diabetes type 2 (diet controlled, previously on metformin) - Hematologic/Lymphatic Hematologic/Lymph: reports: Recurrent infections (frequent UTIs) - All Other Systems All Other Systems: reports: Reviewed and negative (Review of systems is limited as patient is a poor historian due to dementia and supplemental review of systems obtained from [facility].) Physical Exam - Vital Signs Temperature: 36.7 C Pulse Rate: 60 O2 Saturation: 94 (on RA) Blood Pressure: 100/74 (left wrist cuff) - Physical Exam General Appearance: positive: No acute distress, Alert, Other (in tilt in space chair in common area, well groomed) Eyes Bilateral: positive: Normal inspection ENT: positive: No signs of dehydration, Other (+endentulous) Neck: positive: Trachea midline Cardiovascular: positive: Regular rate & rhythm, No murmur Respiratory: positive: No respiratory distress, Breath sounds nml Abdomen: positive: Non-tender, Soft, Nml bowel sounds. negative: Distended Skin: positive: Dryness (generalized) Extremities: positive: No pedal edema Neurologic/Psychiatric: positive: Mood/affect nml (no anxiety or evidence of distress), Disoriented to person, Disoriented to place, Disoriented to time, Unintelligible speech (+word salad), Other (Pleasantly confused and is humming a song) Palliative Care - POLST Patient has POLST: Yes POLST Status: DNR, Comfort Measures Pain: Comment (visible signs of discomfort with transfers per staff report and OA pain controlled on daily meloxicam) Drowsiness/Sedation: Moderate (4-6) (napping during the day. Son reports that when the patient's did a solo visit at the facility this week she slept during the entire visit) Constipation: Managed Performance Status: FAS T7 C - Palliative Care Discussion: The patient has had some recent weight gain and is consuming typically 100% of her meals and would benefit from a reduction of her supplemental health shake from twice a day to once a day. Ultimately, would prefer her to have her calories through consumption of food during mealtime. She presently has plateaued to a new baseline in relation to her dementia. She has benefited from obtainment of a tilt in space wheelchair for her ability to engage and participate with facility activities as well as during mealtimes. Her osteoarthritic pain is presently controlled with the use of daily meloxicam and given that she does display some evidence of discomfort with transfers we will not trial a elimination of his medication at this time. Impression and Recommendations - Palliative Care Impression: This is an 85-year-old female with advanced dementia, FAS T7 C who presently has plateaued with recent weight gain. Her symptoms of anxiety and depression are overall managed. Palliative care to continue to provide support for symptom management, care coordination, anticipatory guidance with transition to hospice when medically appropriate. Recommendations/Counseling Done: 1. History of weight loss. Due to progression of her underlying dementia. Recent weight increased to 171.4 pounds on 05/26. Had decrease health shake to once daily. Continue assistance with meals. Continue to monitor weekly weight trends. 2. Osteoarthritis. No reports of pain or discomfort on evaluation. No history of GI bleed. Facility staff report that the patient will display evidence of discomfort with transfers and therefore, will not do a trial discontinuation of meloxicam at this time. Continue meloxicam 7.5 mg daily as ordered. Continue to monitor. 3. Depression anxiety. Presently fairly well controlled. No recent episodes of crying spells. Continue lorazepam as ordered 0.5 mg 3 times daily. Continue lorazepam 0.5 mg every 6 hours as needed for anxiety. Continue sertraline 150 mg daily. Would recommend avoidance of overstimulation. Has done well with interactions recently with her son/DPOA during visits. Continue to monitor. 4. Dementia with behavioral disturbances. Chronic. Progressive. Supportive care. Fall precautions. Present only on no disease modifying agents. Continue quetiapine 25 mg nightly as ordered. Given the patient's advanced age, dementia and chronic comorbidities a gradual Will is expected. 5. Advanced care planning. POLST in place as DN AR with comfort measures. The patient has had stabilization regarding her underlying dementia and at this time is not quite hospice appropriate. Discussed with patient's son/DPOA discontinuation of vitamin D supplementation but he prefers to continue and therefore will change from a capsule to a tablet for ease of administration to allow for crushing the medication. Goal remains to focus on comfort measures within the facility environment. CPT 82620 Plan of care reviewed with facility Yolette [facility] and in agreement. Contacted the patient's son/DPOA Guillermo at [phone] to discuss plan of care and noted weight gain. Questions answered and addressed with the patient's son and Approved plan of care changes. Disclaimer: The chart note was formulated using voice recognition technology and unfortunately sound alike errors may occur. Harsha
== END 2020-06-09 09:16 | disposition home or self-care (01) ==
LOC: PC 09:15
PROVIDERS: ATTEND Nurse Practitioner Family
DX: Z51.5 Encounter for palliative care (principal); M19.90 Unspecified osteoarthritis, unspecified site; F32.9 Major depressive disorder, single episode, unspecified; F41.9 Anxiety disorder, unspecified; F03.91 Unspecified dementia, unspecified severity, with behavioral disturbance; E11.9 Type 2 diabetes mellitus without complications; Z86.16 Personal history of COVID-19; Z66 Do not resuscitate

== ENCOUNTER 2020-09-25 12:55 | Outpatient (CLI) | payer MEDICARE, OTHER, MEDICAID | END 2020-09-25 12:56 | disposition critical access hospital (66) | LOC: EMS 12:55 | DX: R05 Cough (principal); R11.2 Nausea with vomiting, unspecified | CPT/HCPCS: A0425; A0429 ==

== ENCOUNTER 2020-09-25 13:11 | Emergency (ER) | payer MEDICARE, OTHER, MEDICAID ==
--- NOTE | 2020-09-25 13:23 | ED Physician Documentation ---
PD HPI DYSPNEA - Stated complaint Stated Complaint: POSSIBLE ASPIRATION - History obtained from History obtained from: EMS - Additional information Additional information: This is a very demented woman from memory care who potentially aspirated today while eating a pastry. She is non verbal so no hx available from her. Per bisque kiln placer sats and lungs ok prehospital. Review of Systems Unable to obtain: Dementia PD PAST MEDICAL HISTORY - Past Medical History Past Medical History: Yes - Present Medications Home Medications: Ambulatory Orders Medication Instructions Recorded Confirmed Acetaminophen 500 mg PO Q4H PRN MDD NTE 2gram 05/05/19 06/04/19 daily Aspirin [Aspirin EC] 81 mg PO DAILY 05/05/19 06/04/19 Bisacodyl Supp [Dulcolax Supp] 1 ea [place] DAILY PRN MDD if NO BM 05/05/19 06/04/19 after MOM in 24hr Bismuth Subsalicylate [[place] 15 ml PO Q1H PRN MDD NTE 3 05/05/19 06/04/19 Bismuth] doses/24hour Cranberry Fruit Extract/Vit C [Cvs 1 cap PO DAILY 05/05/19 06/04/19 Cranberry-Vitamin C Sfgl] LORazepam [Ativan] 0.5 mg PO Q6H PRN 05/05/19 06/04/19 LORazepam [Ativan] 0.5 mg PO TID 05/05/19 06/04/19 Loperamide HCl [Loperamide] 05/05/19 Loratadine [Allergy] 10 mg PO DAILY 05/05/19 05/05/19 Magnesium Hydroxide [Milk of 30 ml PO DAILY PRN 05/05/19 05/05/19 Magnesia] Meloxicam 7.5 mg PO DAILY 05/05/19 05/05/19 Multivitamin [Multiple Vitamins] 1 tab PO DAILY 05/05/19 06/04/19 Nystatin 1 applic TP Q8H PRN MDD as needed 05/05/19 06/04/19 reddness QUEtiapine [SEROquel] 25 mg PO QPM 05/05/19 06/04/19 Sertraline HCl [Zoloft] 150 mg PO DAILY 05/05/19 06/04/19 D'Mannose 1 g PO BID 06/04/19 06/04/19 lisinopriL [Prinivil] 5 mg PO BID 09/14/19 09/14/19 Morphine Sulfate [Morphine Sulf 0.25 ml PO Q2H PRN 02/09/20 02/09/20 Oral (Roxanol)] - Allergies Allergies/Adverse Reactions: Allergies Allergy/AdvReac Type Severity Reaction Status Date / Time codeine Allergy Unknown Verified 02/09/20 10:08 Penicillins Allergy Unknown Verified 02/09/20 10:08 zolpidem [From Ambien] Allergy Unknown Verified 02/09/20 10:08 - Living Situation Living Arrangement: reports: Assisted living PD ED PE NORMAL - Vitals Vital signs reviewed: Yes - General General: Other (Alert w eye contact, nonverbal) - Respiratory Respiratory: No respiratory distress, Clear bilaterally - Neuro Eye Opening: Spontaneous Motor: Localizes to Pain Verbal: None GCS Score: 10 Results - Vitals Vitals: Oxygen O2 Source Room air PD MEDICAL DECISION MAKING - ED course ED course: 85-year-old woman with potential aspiration episode from memory care. She is demented. Her son is at the bedside. Chest x-ray and pulmonary examination is clear. Vitals unremarkable. Departure - Departure Disposition: 01 Home, Self Care Clinical Impression: Aspiration into airway Qualifiers: Encounter type: initial encounter Qualified Code(s): T17.908A - Unspecified foreign body in respiratory tract, part unspecified causing other injury, initial encounter Condition: Good Record reviewed to determine appropriate education?: Yes Comments: See handwritten orders as we were I am, it was recommended that she go to a soft mechanical diet.
--- NOTE | 2020-09-26 14:55 | XRAY Report ---
PROCEDURE: CHEST 1 View INDICATIONS: TECHNIQUE: Single AP portable view of the chest. COMPARISON: None. FINDINGS: Mildly low lung volumes are seen with resulting prominence of the lung markings. No focal airspace op acity is seen. No pleural effusion or pneumothorax. Cardiac mediastinal contours are within normal limits. Mild aortic atherosclerotic calcifications. Mild multilevel degenerative changes in the spine. IMPRESSION: No acute cardiopulmonary abnormality. Reviewed by: Jean Carlos Mcneill MD on 09/25/2020 7:06 PM PDT Approved by: Jean Carlos Mcneill MD on 09/25/2020 7:06 PM PDT Station ID: [id number]
== END 2020-09-25 15:15 | disposition home or self-care (01) ==
LOC: EDUNIT# → ED 13:11
DX: T17.920A Food in respiratory tract, part unspecified causing asphyxiation, initial encounter (principal); F03.90 Unspecified dementia, unspecified severity, without behavioral disturbance, psychotic disturbance, mood disturbance, and anxiety
CPT/HCPCS: 99281; 99283

== ENCOUNTER 2020-09-25 15:23 | Outpatient (CLI) | payer MEDICARE, OTHER, MEDICAID | END 2020-09-25 15:24 | disposition home or self-care (01) | LOC: EMS 15:23 | PROVIDERS: ATTEND Emergency Medicine | DX: F03.90 Unspecified dementia, unspecified severity, without behavioral disturbance, psychotic disturbance, mood disturbance, and anxiety (principal); R41.0 Disorientation, unspecified | CPT/HCPCS: A0425; A0428 ==

== ENCOUNTER 2020-11-16 10:05 | Outpatient (CLI) | payer MEDICARE, OTHER, MEDICAID ==
--- NOTE | 2020-11-16 17:43 | CONSULTATION NOTE ---
Palliative Care Follow Up - Referral Referring Provider: LILIANA Grover Time of Visit: Initiated 1005 Referral setting: Assisted living Referral Reason: Dementia/Weight gain - Information Sources Records reviewed: Previous records reviewed History/Review of Systems obtained from: Caregiver, Nursing Exam limitations: Clinical condition (Advanced Dementia) - History of Present Illness Update Brief HPI Update: This is an 85-year-old female who was seen in follow-up today at [facility] for advanced dementia, weight gain, and history of emesis. The patient is presently on health shakes twice daily. She has been having steady weight gain with last weight documented at 175.4 pounds on 10/28/2020. Of note weight on 10/30/2019 was 168 pounds. Patient is no longer ambulatory. She requires assistance with meals. She had an emergency department visit on 09/25/2020 due to a reported choking episode. It was requested that she be downgraded to mechanical soft diet. Son/DPOA Del expresses to ensure that this is implemented as he "does not want a another choking incident." The patient has a history of anxiety and depression with history of periodic crying spells. She is able to be redirected with music. She is presently on scheduled lorazepam 3 times daily as well as sertraline and quetiapine scheduled. She has not required any lorazepam as needed. Upon review of MAR. She is wheelchair-bound in a tilt in space wheelchair. This allows her to have these with participating in facility activities and mealtimes. Patient is seen out of bed in the common area in her tilt in space wheelchair bright and alert watching the activity being performed. No evidence of acute distress. Past Medical History: Patient has a past medical history of hypertension, hyperlipidemia, coronary artery disease with a history of angioplasty, dementia, type 2 diabetes mellitus , urinary incontinence, osteoarthritis, depression, COVID-19 12/2019. Social History - Living Situation Living arrangement: Assisted living Support System: The patient has been residing at [facility] for approximately 5 years. She was living in assisted living for approximately 7 years after her diagnosis of dementia. She has 2 sons. Her son, Guillermo is her guardian and DPOA at contact number [phone]. Guillermo is involved in the patient's care and management. He likes to be kept informed by the facility of status changes on the patient. Before the Covid19 numbers were increasing, Guillermo and patient's brother Dick, were visiting regularly to provide oversight. Guillermo expresses it is extremely difficult to not be allowed into the facility to visit the patient and monitor the care. Medications/Allergies - Medications Home Medications: Ambulatory Orders Medication Instructions Recorded Confirmed Acetaminophen 500 mg PO Q4H PRN MDD NTE 2gram 05/05/19 06/04/19 daily Aspirin [Aspirin EC] 81 mg PO DAILY 05/05/19 06/04/19 Bisacodyl Supp [Dulcolax Supp] 1 ea [place] DAILY PRN MDD if NO BM 05/05/19 06/04/19 after MOM in 24hr Bismuth Subsalicylate [[place] 15 ml PO Q1H PRN MDD NTE 3 05/05/19 06/04/19 Bismuth] doses/24hour Cranberry Fruit Extract/Vit C [Cvs 1 cap PO DAILY 05/05/19 06/04/19 Cranberry-Vitamin C Sfgl] LORazepam [Ativan] 0.5 mg PO Q6H PRN 05/05/19 06/04/19 LORazepam [Ativan] 0.5 mg PO TID 05/05/19 06/04/19 Loperamide HCl [Loperamide] 05/05/19 Loratadine [Allergy] 10 mg PO DAILY 05/05/19 05/05/19 Magnesium Hydroxide [Milk of 30 ml PO DAILY PRN 05/05/19 05/05/19 Magnesia] Meloxicam 7.5 mg PO DAILY 05/05/19 05/05/19 Multivitamin [Multiple Vitamins] 1 tab PO DAILY 05/05/19 06/04/19 Nystatin 1 applic TP Q8H PRN MDD as needed 05/05/19 06/04/19 reddness QUEtiapine [SEROquel] 25 mg PO QPM 05/05/19 06/04/19 Sertraline HCl [Zoloft] 150 mg PO DAILY 05/05/19 06/04/19 D'Mannose 1 g PO BID 06/04/19 06/04/19 lisinopriL [Prinivil] 5 mg PO BID 09/14/19 09/14/19 Morphine Sulfate [Morphine Sulf 0.25 ml PO Q2H PRN 02/09/20 02/09/20 Oral (Roxanol)] - Allergies Allergies/Adverse Reactions: Allergies Allergy/AdvReac Type Severity Reaction Status Date / Time codeine Allergy Unknown Verified 02/09/20 10:08 Penicillins Allergy Unknown Verified 02/09/20 10:08 zolpidem [From Ambien] Allergy Unknown Verified 02/09/20 10:08 Review of Systems - Constitutional Constitutional: reports: Weight gain (skyler 175.4lb 10/2020; weight 171.4lb on 05/26/2020; 02/27/2020 weight 158.8 pounds. 11/26/2019 weight 167.4 pounds). denies: Fever - Eyes Eyes: denies: Corrective lenses - Ears, Nose & Throat Ears, Nose & Throat: denies: Dentures, Mouth lesions - Cardiovascular Cardiovascular: denies: Edema - Respiratory Respiratory: denies: Other (no cough reported during meals) - Gastrointestinal Gastrointestinal: reports: Good appetite (requires assistance with meals). denies: Constipation (controlled), Vomiting (see HPI) - Genitourinary Genitourinary: reports: Incontinence - Musculoskeletal Musculoskeletal: reports: Assistive devices (in tilt in space wheelchair), Transfer issues. denies: Joint pain (history of OA pain that is controlled with meloxicam that is scheduled) - Integumentary Integumentary: denies: Rash - Neurological Neurological: reports: General weakness, Memory problems - Psychiatric Psychiatric: reports: Depression, Anxiety - Endocrine Endocrine: reports: Diabetes type 2 (diet controlled, previously on metformin) - Hematologic/Lymphatic Hematologic/Lymph: reports: Recurrent infections (frequent UTIs, none recently since placed on UTI prophylaxis) - All Other Systems All Other Systems: reports: Reviewed and negative (Review of systems is limited as patient is a poor historian due to dementia and supplemental review of systems obtained from [employer] Pooja and caregivers.) Physical Exam - Vital Signs Temperature: 36.5 C Pulse Rate: 60 O2 Saturation: 97 (on RA) Blood Pressure: 117/64 - Physical Exam General Appearance: positive: No acute distress, Alert, Other (in tilt in space chair in common area, well groomed) Eyes Bilateral: positive: Normal inspection ENT: positive: No signs of dehydration, Other (+endentulous) Neck: positive: Trachea midline Cardiovascular: positive: Regular rate & rhythm Respiratory: positive: No respiratory distress, Breath sounds nml. negative: Rales Abdomen: positive: Non-tender, Soft, Nml bowel sounds, Obese Skin: positive: No symptoms Extremities: positive: No pedal edema Neurologic/Psychiatric: positive: Mood/affect nml (no anxiety or evidence of distress), Disoriented to person, Disoriented to place, Disoriented to time, Unintelligible speech (+word salad), Other (Pleasantly confused and hummed a Berto singh with this MEDICAL SCRIBE) Palliative Care - POLST Patient has POLST: Yes POLST Status: DNR, Comfort Measures Pain: Comment (Controlled with meloxicam scheduled daily) Sleep: Sleeps well Constipation: No Performance Status: FAST 7C - Palliative Care Discussion: Patient has had steady weight gain over the last year and is presently on a health shake twice daily. She would benefit from complete discontinuation of house shakes however, patient's son/DPOA wishes her to continue to have calories from the house she can therefore will only reduce to once daily and continue to monitor her weight trends. Son/DPOA also expresses concerns to not have another episode of potential aspiration and emesis and to ensure that the patient is on a mechanical soft diet and will rerequest this to ensure this is being enacted upon at the facility level. We will also request for meal monitoring and documenting the percent consumed for reference for the patient's son/DPOA. Impression and Recommendations - Palliative Care Impression: This is an 85-year-old female with advanced dementia, FAS T7 C with weight gain and history of episode of dysphagia who would benefit from mechanical soft diet and reduction of health shakes. Palliative care to continue provide support for symptom management, care coordination, anticipatory guidance with transition to hospice when medically appropriate. Recommendations/Counseling Done: 1. Weight gain. Previously history of weight loss. Sedentary lifestyle contributing. Recent weight gain to 1 and 75.4 pounds on 10/28/2020. Reduce health shake from twice daily to once daily with agreement from patient's son/DPOA. Continue to provide assistance with meals. Continue to monitor we ight trends. Request that meal monitoring be performed in documenting percent consumed. 2. Dysphagia. One-time episode resulting in emergency department visit in 09/2020. Request that mechanical soft diet be implemented if not already in place per son's request. Continue to monitor. 3. Osteoarthritis. No reports of pain or discomfort on evaluation. No history of GI bleed. Continue meloxicam 7.5 mg daily as ordered. Consider trial reduction of meloxicam in the future as patient is no longer ambulatory and wheelchair-bound. Continue to monitor. 4. Dementia with behavioral disturbances. Chronic. Progressive. Supportive care. Fall precautions. On no disease modifying agents. Continue quetiapine 25 mg nightly as ordered. Given the patient's advanced age and, dementia and ch ronic comorbidities a gradual Will is expected. CPT 49614 Plan of care reviewed with facility [facility]. Contacted the patient's son/SYLVIA Li at [phone] to discuss plan of care and weight gain with questions answered and addressed and supportive listening provided. Son in agreement for plan of care changes. Disclaimer: The chart note was formulated using voice recognition technology and unfortunately sound alike errors may occur.
== END 2020-11-16 10:06 | disposition home or self-care (01) ==
LOC: PC 10:05
PROVIDERS: ATTEND Nurse Practitioner Family
DX: Z51.5 Encounter for palliative care (principal); R13.10 Dysphagia, unspecified; M19.90 Unspecified osteoarthritis, unspecified site; F03.91 Unspecified dementia, unspecified severity, with behavioral disturbance; Z79.1 Long term (current) use of non-steroidal anti-inflammatories (NSAID); Z79.899 Other long term (current) drug therapy; Z99.3 Dependence on wheelchair; Z86.16 Personal history of COVID-19; Z66 Do not resuscitate

== ENCOUNTER 2021-02-01 14:05 | Outpatient (CLI) | payer MEDICARE, OTHER, MEDICAID ==
--- NOTE | 2021-02-01 19:10 | CONSULTATION NOTE ---
Palliative Care Follow Up - Referral Referring Provider: LILIANA Grover Time of Visit: Initiated 1405 Referral setting: Assisted living Referral Reason: UTI/OA/Weight gain/Dementia - Information Sources Records reviewed: Previous records reviewed History/Review of Systems obtained from: Caregiver, Nursing (DEE Aguilar) Exam limitations: Clinical condition (Advanced Dementia) - History of Present Illness Update Brief HPI Update: This is an 85-year-old female who was seen in follow-up today at [facility] for advanced dementia, weight gain, history of UTIs, and osteoarthritis. Provider wore N95 mask. The patient was demonstrating slow and steady weight gain with last weight at 172.6 pounds. On last evaluation her house shakes were decreased to 1/day after demonstrating this gradual increase due to her wheelchair bound state. The patient is no longer ambulatory. There are no reports of pain Expressed by patient per staff. She continues to require assistance with meals. She is on a mechanical soft diet. Patient has recently been can treated for urinary tract infection with 2 courses of Macrobid with the last dose administered today, 02/01. Patient initially presented with acute anxiety that was out of her baseline as well as blood in her depends. Staff report that she has continued to have some dark urine but her temperament has returned to baseline and no reports of hematuria. Staff are encouraging fluids. She is wheelchair-bound in a tilt in space wheelchair. Son appreciates that she appears to be more fatigued in the afternoons when he comes to visit and would like the patient to have a trial of being laid down after lunch for energy conservation. She continues to participate in activities. Patient seen out of bed in the common area in her tilt in space wheelchair alert and watching Srinivas decorations be hung. No evidence of acute distress. Past Medical History: This is an 85-year-old female who was seen in follow-up today at [facility] for advanced dementia, weight gain, and history of emesis. Patient has a past medical history of hypertension, hyperlipidemia, coronary artery disease with a history of angioplasty, dementia, type 2 diabetes mellitus, urinary incontinence, osteoarthritis, depression, COVID-19 12/2019. Social History - Living Situation Living arrangement: Assisted living Support System: This is an 85-year-old female who was seen in follow-up today at [facility] for advanced dementia, weight gain, and history of emesis. The patient has been residing at [facility] for approximately 5 years. She was living in assisted living for approximately 7 years after her diagnosis of dementia. She has 2 sons. Her son, Guillermo is her guardian and DPOA at contact number [phone]. Guillermo is involved in the patient's care and management. Medications/Allergies - Medications Home Medications: Ambulatory Orders Medication Instructions Recorded Confirmed Acetaminophen 500 mg PO Q4H PRN MDD NTE 2gram 05/05/19 06/04/19 daily Bisacodyl Supp [Dulcolax Supp] 1 ea [place] DAILY PRN MDD if NO BM 05/05/19 06/04/19 after MOM in 24hr Bismuth Subsalicylate [[place] 15 ml PO Q1H PRN MDD NTE 3 05/05/19 06/04/19 Bismuth] doses/24hour Cranberry Fruit Extract/Vit C [Cvs 1 cap PO DAILY 05/05/19 06/04/19 Cranberry-Vitamin C Sfgl] LORazepam [Ativan] 0.5 mg PO Q6H PRN 05/05/19 06/04/19 LORazepam [Ativan] 0.5 mg PO TID 05/05/19 06/04/19 Loperamide HCl [Loperamide] 05/05/19 Magnesium Hydroxide [Milk of 30 ml PO DAILY PRN 05/05/19 05/05/19 Magnesia] Multivitamin [Multiple Vitamins] 1 tab PO DAILY 05/05/19 06/04/19 Nystatin 1 applic TP Q8H PRN MDD as needed 05/05/19 06/04/19 reddness QUEtiapine [SEROquel] 25 mg PO QPM 05/05/19 06/04/19 Sertraline HCl [Zoloft] 150 mg PO DAILY 05/05/19 06/04/19 D'Mannose 1 g PO BID 06/04/19 06/04/19 - Allergies Allergies/Adverse Reactions: Allergies Allergy/AdvReac Type Severity Reaction Status Date / Time codeine Allergy Unknown Verified 02/09/20 10:08 Penicillins Allergy Unknown Verified 02/09/20 10:08 zolpidem [From Ambien] Allergy Unknown Verified 02/09/20 10:08 Review of Systems - Constitutional Constitutional: reports: Weight stable (weight 172.6lb; weight 175.4lb 10/2020; weight 171.4lb on 05/26/2020; 02/27/2020 weight 158.8 pounds. 11/26/2019 weight 167.4 pounds). denies: Fever, Poor appetite - Ears, Nose & Throat Ears, Nose & Throat: denies: Hearing aids, Dentures - Cardiovascular Cardiovascular: denies: Edema - Respiratory Respiratory: denies: Cough - Gastrointestinal Gastrointestinal: reports: Good appetite (requires assistance with meals). denies: Abdominal pain, Constipation (bowel movement every 3 days on average), Vomiting - Genitourinary Genitourinary: reports: Incontinence. denies: Hematuria (see HPI) - Musculoskeletal Musculoskeletal: reports: Assistive devices (in tilt in space wheelchair), Transfer issues. denies: Joint pain (history of OA pain and no longer ambulatory) - Integumentary Integumentary: denies: Rash - Neurological Neurological: reports: General weakness, Memory problems - Psychiatric Psychiatric: reports: Depression, Anxiety - Endocrine Endocrine: reports: Diabetes type 2 (diet controlled, previously on metformin) - Hematologic/Lymphatic Hematologic/Lymph: reports: Recurrent infections (history frequent UTIs, UTI 12/2020 that had not occurred since 2019.) - All Other Systems All Other Systems: reports: Reviewed and negative (Review of systems is limited as patient is a poor historian due to dementia and supplemental review of systems obtained from DEE Aguilar and mare.) Physical Exam - Vital Signs Temperature: 36.7 C Pulse Rate: 72 O2 Saturation: 99 (on RA) Blood Pressure: 145/72 (right wrist) - Physical Exam General Appearance: positive: No acute distress, Alert, Other (in tilt in space chair in common area, well groomed) Eyes Bilateral: positive: Normal inspection ENT: positive: No signs of dehydration, Other (+endentulous) Neck: positive: Trachea midline Cardiovascular: positive: Regular rate & rhythm Respiratory: positive: No respiratory distress, Breath sounds nml Abdomen: positive: Non-tender, Soft, Nml bowel sounds, Obese Skin: positive: No symptoms Extremities: positive: No pedal edema Neurologic/Psychiatric: positive: Mood/affect nml (no anxiety or evidence of distress), Disoriented to person, Disoriented to place, Disoriented to time, Unintelligible speech (+word salad), Other (Pleasantly confused) Palliative Care - POLST Patient has POLST: Yes POLST Status: DNR, Comfort Measures Pain: No pain Sleep: Sleeps well Performance Status: FAST 7C - Palliative Care Discussion: Patient previously with steady weight gain over a years time with a recent reduction in her health shake to once a day and her weight has stabilized. Patient recently treated for urinary tract infection with 2 courses of Macrobid. Patient wounds hematuria has resolved however, staff continues to report dark urine likely due to patient's oral hydration status and in discussion with the patient's son/DPOA in agreement for encouragement of fluids to be standing. Son expresses a desire to have the patient be optimally comfortable. He does recognize that on occasions when he has visited in the afternoon the patient does not always appear to be comfortable in her tilt in space wheelchair. Therefore, he was requested for trial of having the patient in bed after lunch 3 days/week. As she is no longer ambulatory, son/DPHUGO is open to discontinuing meloxicam as the patient is no longer ambulatory and monitoring for any signs and symptoms of increased pain. Impression and Recommendations - Palliative Care Impression: This is an 85-year-old female with advanced dementia, FAS T7 C with stabilized weight gain, acute cystitis resolved, and osteoarthritis. She would benefit from discontinuation of meloxicam as she is without reports of pain to reduce potential adverse event due to side effects of long-term NSAID therapy and son/DPOA in agreement. Palliative care to continue provide support for symptom management, care coordination, anticipatory guidance with transition to hospice when medically appropriate. Recommendations/Counseling Done: 1. Osteoarthritis. No reports of pain or discomfort on evaluation per staff report. No history of GI bleed. After discussion with son/DPOA discontinue meloxicam 7.5 mg daily. Request that staff monitor signs and symptoms of pain twice a day with documentation x2 weeks and send to palliative care [employer] [employer]NAGER for review. Patient required meloxicam when she was ambulatory and is she is no longer ambulatory and wheelchair-bound would benefit from trial discontinuation to reduce risk of side effects from long-term NSAID therapy. For comfort and per son/DPOA's request request that the patient return to bed after lunch on Saturday, Saturday, and Saturday as a trial. 2. Weight gain. Previous history of weight loss. Weight gain has presently stabilized. Sedentary lifestyle contributing. Last weight at 172.6 pounds. Continue on health shake once daily. Continue to provide assistance with meals. Continue to monitor weight trends. 3. Acute cystitis. Hematuria resolved. Would benefit from increased oral hydration. Request staff to encourage 140 mL of fluids 3 times a day between meals and document percent consumed. Patient's last UTI was in 2019 since initiation of UTI prophylaxis therapy. Continue cranberryvitamin C supplementation and d-mannose as prescribed for UTI prophylaxis. 4. Hypertension. No cardiac awareness. Previously on lisinopril. Blood pressure less than 150/90 as goal. Continue to monitor blood pressure trends and reinitiate antihypertensive medications if needed. 5.Dementia with behavioral disturbances. Chronic. Progressive. Supportive care. Fall precautions. On no disease modifying agents. Continue quetiapine 25 mg nightly as ordered. Given the patient's advanced age and chronic comorbidities a gradual decline is expected. CPT 75798 Contacted the patient's son/SYLVIA Li at [phone] to discuss plan of care and in agreement with above recommendations and implementation. Questions answered and addressed. Disclaimer: The chart note was formulated using voice recognition technology and unfortunately sound alike errors may occur.
== END 2021-02-01 14:06 | disposition home or self-care (01) ==
LOC: PC 14:05
PROVIDERS: ATTEND Nurse Practitioner Family
DX: Z51.5 Encounter for palliative care (principal); M19.91 Primary osteoarthritis, unspecified site; N30.00 Acute cystitis without hematuria; I10 Essential (primary) hypertension; F03.91 Unspecified dementia, unspecified severity, with behavioral disturbance; Z86.16 Personal history of COVID-19; Z66 Do not resuscitate

== ENCOUNTER 2021-02-06 12:20 | Outpatient (CLI) | payer MEDICARE, OTHER, MEDICAID ==
--- NOTE | 2021-02-06 17:05 | CONSULTATION NOTE ---
Palliative Care Follow Up - Referral Referring Provider: LILIANA Mccord Time of Visit: Initiated 1220 Referral setting: Assisted living Referral Reason: Change in condition/Hematuria/Dementia - Information Sources Records reviewed: Previous records reviewed History/Review of Systems obtained from: Family (son/DPOA, Guillermo via phone call), Caregiver, Nursing (RN director, Belen; ADRIA Rocha) - History of Present Illness Update Brief HPI Update: This is an 85-year-old female who was seen in follow-up today at [facility] due to concerns of change in condition by her son/DPOA due to hematuria in the setting of advanced dementia and history of UTIs. Provider wore N95 mask. Son/DPOA reported over the weekend the patient was expressing visual cues of pain and he had to obtain acetaminophen outside of the facility in order to ensure administration with positive response. Son also reports that the patient was difficult to arouse and was not adequately eating and drinking over the weekend. This is in the setting after she had to 5-day courses of Macrobid which the last dose was completed on 02/01. Upon review of urinalysis from 01/29 demonstrated that the patient had a pH of 8.5, WBC 3+, protein 4+, glucose trace, occult blood 3+, negative nitrates, WBC 0-5 per high-power field, RBC greater than 30 per high-power field with bacteria present. Able to obtain urine culture today that demonstrated mixed urogenital francisco 50-100,000 CFU per mL. Staff are continually attempting to administer fluids to the patient. Today, the patient consumes adequate amount of her breakfast and then during lunch this COMB SETTER was present and she consumed 75% of her meal and the majority of her water. There was no evidence of dysphagia or pocketing during the meal reported by caregiver, uma. Caregivers report that the patient is more alert and engaged. All parties acknowledge a overall decline in the patient however, her coloring has improved per staff report. Staff report that despite oral antibiotic treatment she continues to have blood- tinged urine. They also report intermittently seeing mucus-like strands that are red in coloring. The patient last had a bowel movement on 02/04. Previous concern regarding the patient having a weight gain. However, and review of weight trends the patient has actually demonstrated a weight loss with the weight in September 2020 of 193.4 pounds and in January 25 72.8 pounds. The patient continues to require assistance with meals. Patient is seen sitting up in bed being assisted with lunch. No evidence of acute distress. Past Medical History: Patient has a past medical history of hypertension, hyperlipidemia, coronary artery disease with a history of angioplasty, dementia, type 2 diabetes mellitus, urinary incontinence, osteoarthritis, depression, COVID-19 12/2019. Social History - Living Situation Living arrangement: Assisted living Support System: The patient has been residing at [facility] for approximately 5 years. She was living in assisted living for approximately 7 years after her diagnosis of dementia. She has 2 sons. Her son, Guillermo is her guardian and DPOA at contact number [phone]. Guillermo is involved in the patient's care and management. Prior to COVID, the patient's son and brother would visit daily. Medications/Allergies - Medications Home Medications: Ambulatory Orders Medication Instructions Recorded Confirmed Acetaminophen 500 mg PO Q4H PRN MDD NTE 2gram 05/05/19 06/04/19 daily Bisacodyl Supp [Dulcolax Supp] 1 ea CA DAILY PRN MDD if NO BM 05/05/19 06/04/19 after MOM in 24hr Bismuth Subsalicylate [Slaughter 15 ml PO Q1H PRN MDD NTE 3 05/05/19 06/04/19 Bismuth] doses/24hour Cranberry Fruit Extract/Vit C [Cvs 1 cap PO DAILY 05/05/19 06/04/19 Cranberry-Vitamin C Sfgl] LORazepam [Ativan] 0.5 mg PO Q6H PRN 05/05/19 06/04/19 LORazepam [Ativan] 0.5 mg PO TID 05/05/19 06/04/19 Loperamide HCl [Loperamide] 05/05/19 Magnesium Hydroxide [Milk of 30 ml PO DAILY PRN 05/05/19 05/05/19 Magnesia] Multivitamin [Multiple Vitamins] 1 tab PO DAILY 05/05/19 06/04/19 Nystatin 1 applic TP Q8H PRN MDD as needed 05/05/19 06/04/19 reddness QUEtiapine [SEROquel] 25 mg PO QPM 05/05/19 06/04/19 Sertraline HCl [Zoloft] 150 mg PO DAILY 05/05/19 06/04/19 D'Mannose 1 g PO BID 06/04/19 06/04/19 Ciprofloxacin HCl [Cipro] 250 mg PO DAILY MDD x3 days 02/06/21 02/06/21 Morphine Oral Soln [Roxanol] 2.5 mg PO Q4H PRN 02/06/21 02/06/21 - Allergies Allergies/Adverse Reactions: Allergies Allergy/AdvReac Type Severity Reaction Status Date / Time codeine Allergy Unknown Verified 02/09/20 10:08 Penicillins Allergy Unknown Verified 02/09/20 10:08 zolpidem [From Ambien] Allergy Unknown Verified 02/09/20 10:08 Review of Systems - Constitutional Constitutional: reports: Weight loss (weight 172.6lb; weight 193.4lb 09/27/2020). denies: Fever - Ears, Nose & Throat Ears, Nose & Throat: denies: Dentures - Cardiovascular Cardiovascular: denies: Edema - Respiratory Respiratory: denies: Cough - Gastrointestinal Gastrointestinal: reports: Other (Recent decrease in appetite, requires assistance with meals). denies: Abdominal pain, Constipation (LBM 02/04), Nausea, Vomiting - Genitourinary Genitourinary: reports: Hematuria (see HPI), Incontinence - Musculoskeletal Musculoskeletal: reports: Assistive devices (in tilt in space wheelchair), Transfer issues. denies: Joint pain (history of OA pain and no longer ambulatory) - Neurological Neurological: reports: General weakness, Memory problems - Psychiatric Psychiatric: reports: Depression, Anxiety - Endocrine Endocrine: reports: Diabetes type 2 (diet controlled, previously on metformin) - Hematologic/Lymphatic Hematologic/Lymph: reports: Recurrent infections (history frequent UTIs, UTI 12/2020 that had not occurred since 2019.) - All Other Systems All Other Systems: reports: Reviewed and negative (Review of systems is limited as patient is a poor historian due to dementia and supplemental review of systems obtained from caregivers and ADRIA Rocha.) Physical Exam - Vital Signs Temperature: 36.5 C Pulse Rate: 72 O2 Saturation: 95 (on RA) Blood Pressure: 110/60 (left arm) - Physical Exam General Appearance: positive: No acute distress, Alert, Other (well groomed sitting up in bed, being assisted with lunch) Eyes Bilateral: positive: Normal inspection ENT: positive: No signs of dehydration, Other (+endentulous) Neck: positive: Trachea midline Cardiovascular: positive: Regular rate & rhythm Respiratory: positive: No respiratory distress, Breath sounds nml Abdomen: positive: Non-tender, Soft, Nml bowel sounds, Obese, Other (Bimanual assessment preformed and no noted blood after examination or tenderness noted on palpation.). negative: Guarding Skin: positive: No symptoms Extremities: positive: No pedal edema Neurologic/Psychiatric: positive: Disoriented to person, Disoriented to place, Disoriented to time, Unintelligible speech (+word salad), Other (With attempt to preform bimanual exam the patient became anxious but calmed with playing [employer] on caregiver, Uma's phone.) Palliative Care - POLST Patient has POLST: Yes POLST Status: DNR, Comfort Measures Pain: Comment (Reports of visualized grimacing that resolves with no clear reported cause noted by son/DPOA or staff. Responds to acetaminophen) Performance Status: Patient is incontinent of bowel and bladder. Nonverbal. Wheelchair-bound. Hi story of frequent falls. FAS T7 C - Palliative Care Discussion: Patient has had a general functional decline over the last several years related to her advancing dementia. She requires a full assistance for care including assistance during mealtimes. Previously believed bleed had stabilized however, upon review patient has had a weight loss from 193.4 pounds to 172.8 pounds since September 2020. Patient appears to be euvolemic and no evidence of edema. Staff had been noticing blood in the patient's depends believed to be due to hematuria and patient was treated with a two 5-day course of Macrobid and continues to have persisting hematuria. Review of urinalysis and urine culture results with son reveals that urine culture from 01/29 showed mixed urogenital will francisco and Likely contamination and in discussion regarding interventions, patient's son/DPOA recognizes that the patient has been declining functionally and would prefer to have her symptoms managed within the facility environment and not proceed with interventions at a hospital level of care. Therefore, will treat for urinary tract infection with ciprofloxacin 250 mg daily x3 days for comfort. Patient to remain off meloxicam as potential contributing factor to hematuria. Discussed end-of-life with patient's son/DPOA in regards to questions surrounding oral hydration and provided education and comfort regarding perception of hydration at end-of-life. Given the patient's son wishes to focus on comfort measures he wishes to transfer the patient to hospice services for an extra added layer of support and to optimize the patient's comfort within the facility environment. Given the son and caregivers have noted intermittent displays of discomfort we will add on MSIR 2.5 mg in liquid formation to be administered every 4 hours as needed for moderate to severe pain to optimize the patient's comfort. Reviewed purpose, dose, and side effects with the patient's son/DPOA who understood verbalized understanding and agreement to move forward. Results - Lab Results Lab results reviewed: Yes Lab and Imaging Results: Urinalysis and culture 01/29/21 Impression and Recommendations - Palliative Care Impression: This is an 85-year-old female with advanced dementia, FAS T7 C with noted weight loss from October 14, hematuria, and osteoarthritis. Given the patient has continued hematuria and for comfort will initiate ciprofloxacin 250 mg once daily x3 days for comfort. We will also add on MSIR 2.5 mg every 4 hours as needed for moderate to severe pain with the goal to have the patient remain in the facility 7 with addition of hospice support. Palliative care to continue to provide support for symptom management, care coordination, anticipatory guidance and will transition to hospice services for additional oversight. Recommendations/Counseling Done: 1. Hematuria. Reports to be persisting. Unable to visualize today. Urine culture demonstrated mixed urogenital francisco 50-100,000 CFU per mL. Given reports of discomfort will initiate ciprofloxacin 250 mg daily x3 days as patient has completed to 5-day courses of Macrobid. Will remain off meloxicam as potential bladder irritant leading to hematuria. Continue to encourage oral hydration. Reset the patient's son/DPOA's expectations regarding oral intake with fluids. Continue cranberryvitamin C supplementation and d-mannose as prescribed for UTI prophylaxis. Continue to monitor. 2. Weight loss.Previously believed to be stabilized weight however, patient with 20.6 pound weight loss since October 14 to 172.8 pounds. Advanced dementia is contributing. Continue on health shake once daily. Continue to provide assistance for meals. Continue to monitor weight trends. 3. Pain. Reports of intermittent discomfort verbalized with no common thread. Has responded well to acetaminophen when administered. Will initiate MSIR 2.5 mg every 4 hours as needed for moderate to severe pain and normalized utilizatio n with patient's son/DPOA as throat told to optimize the patient's comfort. Patient is no longer ambulatory and is wheelchair-bound. Discontinued meloxicam on 02/01. Continue to monitor. 4. Dementia. Chronic. Progressive. Supportive care. Fall precautions. On no disease modifying agents. Continue quetiapine 25 mg nightly as ordered. Given the patient's advanced age and chronic comorbidities a gradual Will is expected. 5. Advanced care planning. Patient has POLST in place as DN AR with comfort measures. Reviewed pathophysiology of dementia with the patient's son/DPOA today recognizing that the patient has been declining over the last year with recent hematuria/UTI the patient has had further decline. The patient's son does not wish to have a transfer outside of the facility and wishes to focus on comfort measures within the facility environment. We will therefore, transition to hospice services to provide additional added layer of support. Is the patient will transition to end-of-life care this will also allow the patient's son/DPOA more routine visits due to Covid19 restrictions. Supportive and empathetic listening provided to the patient's son. CPT 15997 Plan of care reviewed at length with ADRIA Rocha RN director Belen as well as the patient's son/DPOA Guillermo via phone at [phone] with questions answered and addressed. Updated [employer] operatorresearch program coordinator Terri--- after patient's son elected to move forward---regarding hospice referral request. Also updated patient's PCP LILIANA Mendoza regarding referral to hospice. Disclaimer: The chart note was formulated using voice recognition technology and unfortunately sound alike errors may occur.
== END 2021-02-06 12:21 | disposition home or self-care (01) ==
LOC: PC 12:20
PROVIDERS: ATTEND Nurse Practitioner Family
DX: Z51.5 Encounter for palliative care (principal); F03.90 Unspecified dementia, unspecified severity, without behavioral disturbance, psychotic disturbance, mood disturbance, and anxiety; R31.9 Hematuria, unspecified; Z86.16 Personal history of COVID-19; N39.0 Urinary tract infection, site not specified; Z87.440 Personal history of urinary (tract) infections; R63.4 Abnormal weight loss; Z99.3 Dependence on wheelchair; R52 Pain, unspecified; Z66 Do not resuscitate; I10 Essential (primary) hypertension; I25.10 Atherosclerotic heart disease of native coronary artery without angina pectoris; E78.5 Hyperlipidemia, unspecified; R32 Unspecified urinary incontinence; F32.A Depression, unspecified; F41.9 Anxiety disorder, unspecified